=== PATIENT | male | born 1935 | race Caucasian/White ===

== ENCOUNTER 2023-09-15 15:26 | Emergency (ER) | payer MEDICARE ==
[2023-09-15 16:05] VITALS: RESP 18
--- NOTE | 2023-09-15 16:42 | ED ---
ENT HPI - General Chief complaint: ENT Stated complaint: Nose bleed Time Seen by Provider: 09/15/23 16:06 Source: patient, RN notes reviewed Mode of arrival: ambulatory Limitations: no limitations - History of Present Illness Initial comments: Patient is an 88-year-old male presenting to the ER with a chief complaint of epistaxis. Patient states he has been having nosebleeds since Monday of this week. He states it starts in the morning as soon as he stands up and is pretty continuous throughout the day. Patient is taking warfarin 2.5mg every other day and 5 mg every other day for atrial fibrillation. He states his INR has not been checked since May 2023. Patient does report that he is only bleeding from his left nostril. Denies any injuries or traumas to his nose. Patient does report blood is dripping down the back of his throat. Denies any difficulties breathing. Denies any chest pain, shortness of breath, dizziness, lightheadedness, hematuria, melena, bright red blood per rectum. - Related Data Allergies Allergy/AdvReac Type Severity Reaction Status Date / Time metformin AdvReac Diarrhea Verified 09/15/23 15:54 Review of Systems ROS Statement: Those systems with pertinent positive or pertinent negative responses have been documented in the HPI. ROS Other: All systems not noted in ROS Statement are negative. Past Medical History Past Medical History: Diabetes Mellitus, Hyperlipidemia, Hypertension History of Any Multi-Drug Resistant Organisms: None Reported Past Surgical History: Coronary Bypass/CABG Additional Past Surgical History / Comment(s): valve replacement Past Psychological History: No Psychological Hx Reported Smoking Status: Former smoker Past Alcohol Use History: None Reported Past Drug Use History: None Reported General Exam Limitations: no limitations General appearance: alert, in no apparent distress Head exam: Present: atraumatic, normocephalic, normal inspection Eye exam: Present: normal appearance, PERRL, EOMI. Absent: scleral icterus, conjunctival injection, periorbital swelling ENT exam: Present: normal exam, mucous membranes moist, other (Blood in posterior pharynx. Mild active nosebleed from left nostril.) Respiratory exam: Present: normal lung sounds bilaterally. Absent: respiratory distress, wheezes, rales, rhonchi, stridor Cardiovascular Exam: Present: normal rhythm, irregular rhythm, normal heart sounds. Absent: systolic murmur, diastolic murmur, rubs, gallop, clicks Neurological exam: Present: alert, oriented X3, CN II-XII intact Psychiatric exam: Present: normal affect, normal mood Course Vital Signs 09/15/23 09/15/23 15:50 18:55 Temperature 98.2 F 98 F Pulse Rate 76 52 L Respiratory 18 18 Rate Blood Pressure 144/85 155/70 O2 Sat by Pulse 98 100 Oximetry - Reevaluation(s) Reevaluation #1: 09/15/23 17:25 Patient reevaluated nose still mildly bleeding. No signs of acute distress. Reevaluation #2: 09/15/23 18:11 Patient reevaluated. Slow bleeding from left nostril. Afrin administered pressure reapplied. No signs of acute distress. Reevaluation #3: 09/15/23 19:16 Patient reevaluated. Active bleeding from left nostril. TXA packing administered. No signs of acute distress. Reevaluation #4: 09/15/23 19:24 Patient reevaluated. TXA packing removed. No active bleeding. Patient without signs of acute distress. Medical Decision Making - Medical Decision Making Was pt. sent in by a medical professional or institution (, PA, SAMPLE WASHER, urgent care, hospital, or retirement...) When possible be specific @ -No Did you speak to anyone other than the patient for history (EMS, parent, family, police, friend...)? What history was obtained from this source @ -No Did you review nursing and triage notes (agree or disagree)? Why? @ -I reviewed and agree with nursing and triage notes Were old charts reviewed (outside hosp., previous admission, EMS record, old EKG, old radiological studies, urgent care reports/EKG's, retirement records)? Report findings @ -No old charts were reviewed Differential Diagnosis (chest pain, altered mental status, abdominal pain women, abdominal pain men, vaginal bleeding, weakness, fever, dyspnea, syncope, headache, dizziness, GI bleed, back pain, seizure, CVA, palpatations, mental health, musculoskeletal)? @ -Not applicable EKG interpreted by me (3pts min.). @ -As above X-rays interpreted by me (1pt min.). @ -None done CT interpreted by me (1pt min.). @ -None done U/S interpreted by me (1pt. min.). @ -None done What testing was considered but not performed or refused? (CT, X-rays, U/S, labs)? Why? @ -None What meds were considered but not given or refused? Why? @ -None Did you discuss the management of the patient with other professionals (professionals i.e. , PA, SAMPLE WASHER, lab, RT, psych nurse, group social worker, quality improvement specialist, teacher, mortgage loan officer, pillowcase cutter)? Give summary @ -No Was smoking cessation discussed for >3mins.? @ -No Was critical care preformed (if so, how long)? @ -No Were there social determinants of health that impacted care today? How? (Homelessness, low income, unemployed, alcoholism, drug addiction, transportation, low edu. Level, literacy, decrease access to med. care, senior living, rehab)? @ -Decrease access to medical care Was there de-escalation of care discussed even if they declined (Discuss DNR or withdrawal of care, Hospice)? DNR status @ -No What co-morbidities impacted this encounter? (DM, HTN, Smoking, COPD, CAD, Cancer, CVA, ARF, Chemo, Hep., AIDS, mental health diagnosis, sleep apnea, morbid obesity)? @ -Hypertension, obesity, atrial fibrillation, history of CVA Was patient admitted / discharged? Hospital course, mention meds given and route, prescriptions, significant lab abnormalities, going to OR and other pertinent info. @ -Discharge. Patient is an 88-year-old male presented to ER with a chief complaint of epistaxis. Vital stable. History and physical exam were completed. Patient in no signs of acute distress. Mild active bleeding noted from left nostril. There is also mild blood in posterior pharynx. Patient was instructed to clear nose with clots and to apply pressure for 20 minutes. Upon reevaluation, bleeding is still active. Afrin was then administered and pressure reapplied. Upon reevaluation bleeding continued. TXA was administered on gauze. Upon reevaluation bleeding ceased. Patient blood pressure was also closely monitored while in the ER. Patient did receive clonidine for blood pressure control as it may be contributing to bleed. Labs were obtained due to warfarin use. INR 4.8, PT 46.8, APTT 33.4. Hemoglobin stable at 13. Patient advised to not take warfarin until able to follow-up with PCP in the next 1 to 2 days. Return parameters were discussed. Patient be discharged stable condition with follow-up to PCP. Patient expressed understanding and agreement with care plan. Undiagnosed new problem with uncertain prognosis? @ -No Drug Therapy requiring intensive monitoring for toxicity (Heparin, Nitro, Insulin, Cardizem)? @ -No Were any procedures done? @ -No Diagnosis/symptom? @ -Epistaxis Acute, or Chronic, or Acute on Chronic? @ -Acute Uncomplicated (without systemic symptoms) or Complicated (systemic symptoms)? @ -Uncomplicated Side effects of treatment? @ -No Exacerbation, Progression, or Severe Exacerbation? @ -No Poses a threat to life or bodily function? How? (Chest pain, [place], [place], pneumonia, PE, COPD, DKA, ARF, appy, cholecystitis, CVA, Diverticulitis, Homicidal, Suicidal, threat to staff... and all critical care pts) @ -No - Lab Data Result diagrams: 09/15/23 16:45 09/15/23 16:45 Lab Results 09/15/23 09/15/23 09/15/23 Range/Units 16:45 16:45 16:45 WBC 8.0 (3.8-10.6) k/uL RBC 4.48 (4.30-5.90) m/uL Hgb 13.9 (13.0-17.5) gm/dL Hct 42.0 (39.0-53.0) % MCV 93.9 (80.0-100.0) fL MCH 31.0 (25.0-35.0) pg MCHC 33.0 (31.0-37.0) g/dL RDW 15.1 (11.5-15.5) % Plt Count 145 L (150-450) k/uL MPV 9.2 Hypochromasia Slight PT 46.8 H (10.0-12.5) sec INR 4.8 H (<1.2) APTT 33.4 H (22.0-30.0) sec Sodium 139 (137-145) mmol/L Potassium 4.9 (3.5-5.1) mmol/L Chloride 109 H (98-107) mmol/L Carbon Dioxide 27 (22-30) mmol/L Anion Gap 3 mmol/L BUN 18 (9-20) mg/dL Creatinine 0.93 (0.66-1.25) mg/dL Est GFR (CKD-EPI)AfAm 85 (>60 ml/min/1.73 sqM) Est GFR (CKD-EPI)NonAf 74 (>60 ml/min/1.73 sqM) Glucose 142 H (74-99) mg/dL Calcium 8.7 (8.4-10.2) mg/dL Total Bilirubin 1.4 H (0.2-1.3) mg/dL AST 24 (17-59) U/L ALT 11 (4-49) U/L Alkaline Phosphatase 114 (38-126) U/L Total Protein 6.6 (6.3-8.2) g/dL Albumin 3.3 L (3.5-5.0) g/dL Disposition Clinical Impression: Epistaxis Disposition: HOME SELF-CARE Condition: Stable Instructions (If sedation given, give patient instructions): Warfarin (By mouth), Nosebleed (ED) Additional Instructions: Please hold warfarin. Follow-up with PCP in the next 1 to 2 days. Return to ER for any new or worsening symptoms. Is patient prescribed a controlled substance at d/c from ED?: No Referrals: Nonstaff,Physician [Primary Care Provider] - 1-2 days Time of Disposition: 19:53
[2023-09-15 17:01] LABS: HGB 13.9 gm/dL (13.0-17.5); Hypochromasia Slight; MCV 93.9 fL (80.0-100.0); Mean Platelet Volume 9.2; Platelet Count 145 k/uL (150-450); RBC 4.48 m/uL (4.30-5.90); RDW 15.1 % (11.5-15.5)
[2023-09-15 17:05] LABS: INR 4.8 (<1.2)
[2023-09-15 17:06] LABS: ALT 11 U/L (4-49); African American GFR (CKD) 85 (>60 ml/min/1.73 sqM); Albumin 3.3 g/dL (3.5-5.0); Anion Gap 3 mmol/L; Blood Urea Nitrogen 18 mg/dL (9-20); Calcium 8.7 mg/dL (8.4-10.2); Carbon Dioxide 27 mmol/L (22-30); Chloride 109 mmol/L (98-107); Glucose 142 mg/dL (74-99); Non-African American GFR(CKD) 74 (>60 ml/min/1.73 sqM); Partial Thromboplastin Time 33.4 sec (22.0-30.0); Prothrombin Time 46.8 sec (10.0-12.5); Sodium 139 mmol/L (137-145); Total Bilirubin 1.4 mg/dL (0.2-1.3); Total Protein 6.6 g/dL (6.3-8.2)
[2023-09-15 17:09] LABS: AST 24 U/L (17-59); Alkaline Phosphatase 114 U/L (38-126); Potassium 4.9 mmol/L (3.5-5.1)
[2023-09-15] MEDS ORDERED: OXYMETAZOLINE 0.05% NASL SPRAY 1 SPRAY BOTTLE NASAL STA (17:49)
[2023-09-15] MEDS ORDERED: TRANEXAMIC ACID 1,000 MG/10 ML VIAL IRRIGATION ONE (18:10)
[2023-09-15] MEDS ORDERED: cloNIDine HCL 0.1 MG TAB PO STA (18:59)
[2023-09-15 19:10] VITALS: TEMP 98
[2023-09-15 20:54] VITALS: BP 161/88; PULSE 66
== END 2023-09-15 20:29 | disposition home or self-care (01) ==
LOC: EC 15:26
DX: R04.0 Epistaxis (principal); E11.9 Type 2 diabetes mellitus without complications; I10 Essential (primary) hypertension; Z87.891 Personal history of nicotine dependence; Z88.8 Allergy status to other drugs, medicaments and biological substances
CPT/HCPCS: 36415; 80053; 85027; 85610; 85730; 99283

== ENCOUNTER 2024-02-07 10:10 | Inpatient (IN) | payer MEDICARE ==
--- NOTE | 2024-02-07 10:40 | ED ---
General Adult HPI - General Chief complaint: Chest Pain Stated complaint: Chest pain Time Seen by Provider: 02/07/24 10:12 Source: EMS Mode of arrival: EMS Limitations: no limitations - History of Present Illness Initial comments: Dictation was produced using [employer] dictation software. please excuse any grammatical, word or spelling errors. Chief Complaint: 88-year-old male hard of hearing presents to the ER for epigastric pain History of Present Illness: Patient is 88-year-old male he is brought in from home by EMS. Patient complaining of hours of epigastric abdominal pain. Patient's history of CABG. Patient hard of hearing. 12 years ago patient had CABG after having had atypical chest pain. He did not have any obvious pressure according to EMS received report from family. Patient states that he has pain in his abdomen nonradiating. May be some nausea but no diaphoresis. Denies any pressure in his substernal area. Patient also has history of valvular replacement. The ROS documented in this emergency department record has been reviewed and confirmed by me. Those systems with pertinent positive or negative responses have been documented in the HPI. All other systems are other negative and/or noncontributory. - Related Data Home Medications Medication Instructions Recorded Confirmed Aspirin EC [Ecotrin Low Dose] 81 mg PO DAILY 02/07/24 02/07/24 Atorvastatin [Lipitor] 40 mg PO HS 02/07/24 02/07/24 Doxycycline Hyclate 50 mg PO DAILY 02/07/24 02/07/24 Finasteride [Proscar] 5 mg PO DAILY 02/07/24 02/07/24 Gabapentin [Neurontin] 300 mg PO DAILY 02/07/24 02/07/24 Gabapentin [Neurontin] 600 mg PO HS 02/07/24 02/07/24 Losartan Potassium 100 mg PO DAILY 02/07/24 02/07/24 Metoprolol Tartrate [Lopressor] 25 mg PO BID 02/07/24 02/07/24 Nortriptyline [Pamelor] 25 mg PO HS 02/07/24 02/07/24 Tamsulosin [Flomax] 0.4 mg PO PC-SUPPER 02/07/24 02/07/24 metroNIDAZOLE 0.75% CREAM 1 applic TOPICAL BID 02/07/24 02/07/24 [Metrocream 0.75%] metroNIDAZOLE [metroNIDAZOLE 0.75%] 1 applic TOPICAL BID 02/07/24 02/07/24 Allergies Allergy/AdvReac Type Severity Reaction Status Date / Time metformin AdvReac Diarrhea Verified 02/07/24 12:12 Review of Systems ROS Statement: Those systems with pertinent positive or pertinent negative responses have been documented in the HPI. ROS Other: All systems not noted in ROS Statement are negative. Past Medical History Past Medical History: Diabetes Mellitus, Hyperlipidemia, Hypertension Additional Past Medical History / Comment(s): Quadruple bypass History of Any Multi-Drug Resistant Organisms: None Reported Past Surgical History: Coronary Bypass/CABG Additional Past Surgical History / Comment(s): valve replacement Past Psychological History: No Psychological Hx Reported Smoking Status: Former smoker Past Alcohol Use History: None Reported Past Drug Use History: None Reported General Exam - General Exam Comments Initial Comments: PHYSICAL EXAM: General Impression: Alert and oriented x3, not in acute distress HEENT: Normocephalic atraumatic, extra-ocular movements intact, pupils equal and reactive to light bilaterally, mucous membranes moist. Cardiovascular: Heart regular rate and rhythm Chest: Able to complete full sentences, no retractions, no tachypnea Abdomen: abdomen soft, non-tender, non-distended, no organomegaly Musculoskeletal: Pulses present and equal in all extremities, no peripheral edema Motor: no focal deficits noted Neurological: CN II-XII grossly intact, no focal motor or sensory deficits noted Skin: Intact with no visualized rashes Psych: Normal affect and mood Limitations: no limitations Course Vital Signs 02/07/24 02/07/24 02/07/24 10:12 11:05 12:16 Temperature 97.8 F 99.9 F H Pulse Rate 79 69 120 H Respiratory 20 18 24 Rate Blood Pressure 132/65 156/89 184/95 O2 Sat by Pulse 98 97 93 L Oximetry EKG Findings - EKG Comments: EKG Findings:: My EKG interpretation: Ventricular rate 72, sinus rhythm,. 171, qrs 151, QTc 431, right bundle branch block. No PA prolongation, no QTC prolongation, no ST or T-wave changes noted. No old EKG for comparison overall, this EKG is not Medical Decision Making - Medical Decision Making Was pt. sent in by a medical professional or institution (, PA, FINGERPRINT EXPERT, urgent care, hospital, or alf...) When possible be specific @ -No Did you speak to anyone other than the patient for history (EMS, parent, family, police, friend...)? What history was obtained from this source @ -Some history obtained from as described above also states that patient is DNR. Did you review nursing and triage notes (agree or disagree)? Why? @ -I reviewed and agree with nursing and triage notes Were old charts reviewed (outside hosp., previous admission, EMS record, old EKG, old radiological studies, urgent care reports/EKG's, alf records)? Report findings @ -No old charts were reviewed Differential Diagnosis (chest pain, altered mental status, abdominal pain women, abdominal pain men, vaginal bleeding, musculoskeletal, weakness, fever, dyspnea, syncope, headache, dizziness, GI bleed, back pain, seizure, CVA, palpatations, mental health)? @ -Differential Chest Pain: Stable Angina, Unstable Angina, STEMI, NSTEMI Aortic Dissection, Pneumothorax, Musculoskeletal, Esophageal Spasm GERD, Cholecystitis, Pancreatitis, Zoster, this is not meant to be an all-inclusive list. EKG interpreted by me (3pts min.). @ -See above. X-rays interpreted by me (1pt min.). @ -Chest x-ray shows right lower lobe effusion along with some opacities concerning for pneumonia CT interpreted by me (1pt min.). @ -None done U/S interpreted by me (1pt. min.). @ -None done What testing was considered but not performed or refused? (CT, X-rays, U/S, labs)? Why? @ -None What meds were considered but not given or refused? Why? @ -None Was smoking cessation discussed for >3mins.? @ -No Were there social determinants of health that impacted care today? How? (Homelessness, low income, unemployed, alcoholism, drug addiction, transportation, low edu. Level, literacy, decrease access to med. care, detention, rehab)? @ -No Was there de-escalation of care discussed even if they declined (Discuss DNR or withdrawal of care, Hospice)? DNR status @ -No What co-morbidities impacted this encounter? (DM, HTN, Smoking, COPD, CAD, Cancer, CVA, ARF, Chemo, Hep., AIDS, mental health diagnosis, sleep apnea, morb id obesity)? @ -Coronary artery disease, history of CABG Was patient admitted / discharged? Hospital course, mention meds given and route, prescriptions, significant lab abnormalities, going to OR and other pertinent info. @ -88-year-old male presents emergency department for epigastric pain. Patient is a poor historian. He is well-appearing upon initial evaluation. Vital signs upon arrival are within acceptable limits. While being monitored in the emergency department patient started to have some shaking chills and low-grade temperature along with elevated heart rate. EKG was performed showing A-fib RVR. Patient started on Cardizem. Patient has a history of A-fib according to . States that patient is DNR. Chest x-ray suspicious for pneumonia. Laboratory evaluation obtained showed no leukocytosis. Elevated liver enzymes, troponin 0.024. Time of diagnosis of pneumonia was approximate 12:30 PM. We will avoid 30 cc/kg bolus of fluids due to patient's history of cardiac disease and likely heart failure. Patient is given 1 L of IV fluids. Did you discuss the management of the patient with other professionals (professionals i.e. , PA, FINGERPRINT EXPERT, lab, RT, psych nurse, social sciences professor, nurse case management, teacher, air support control officer, case resolution specialist)? Give summary @ -Case discussed with Dr. Rosado for admission Was critical care preformed (if so, how long)? @ -Yes, 33 minutes Undiagnosed new problem with uncertain prognosis? @ -No Drug Therapy requiring intensive monitoring for toxicity (Heparin, Nitro, Insulin, Cardizem)? @ -No Were any procedures done? @ -No Diagnosis/symptom? Acute, or Chronic, or Acute on Chronic? Uncomplicated (without systemic symptoms) or Complicated (systemic symptoms)? @ -Chest pain, A-fib with RVR, pneumonia Side effects of treatment? @ -No Exacerbation, Progression, or Severe Exacerbation? @ -No Poses a threat to life or bodily function? How? (Chest pain, [place], [place], pneumonia, PE, COPD, DKA, ARF, appy, cholecystitis, CVA, Diverticulitis, Homicidal, Suicidal, threat to staff... and all critical care pts) @ -yes - Lab Data Result diagrams: 02/07/24 10:29 02/07/24 10:29 Lab Results 02/07/24 02/07/24 02/07/24 Range/Units 10:29 10:29 10:29 WBC 9.9 (3.8-10.6) k/uL RBC 4.23 L (4.30-5.90) m/uL Hgb 13.0 (13.0-17.5) gm/dL Hct 41.4 (39.0-53.0) % MCV 98.0 (80.0-100.0) fL MCH 30.7 (25.0-35.0) pg MCHC 31.4 (31.0-37.0) g/dL RDW 15.1 (11.5-15.5) % Plt Count 132 L (150-450) k/uL MPV 9.9 Neutrophils % 83 % Lymphocytes % 12 % Monocytes % 4 % Eosinophils % 1 % Basophils % 0 % Neutrophils # 8.2 H (1.3-7.7) k/uL Lymphocytes # 1.1 (1.0-4.8) k/uL Monocytes # 0.4 (0-1.0) k/uL Eosinophils # 0.1 (0-0.7) k/uL Basophils # 0.0 (0-0.2) k/uL Hypochromasia Slight PT 11.5 (10.0-12.5) sec INR 1.1 (<1.2) APTT 23.7 (22.0-30.0) sec Sodium 140 (137-145) mmol/L Potassium 5.0 (3.5-5.1) mmol/L Chloride 108 H (98-107) mmol/L Carbon Dioxide 27 (22-30) mmol/L Anion Gap 5 mmol/L BUN 17 (9-20) mg/dL Creatinine 1.09 (0.66-1.25) mg/dL Est GFR (CKD-EPI)AfAm 70 (>60 ml/min/1.73 sqM) Est GFR (CKD-EPI)NonAf 61 (>60 ml/min/1.73 sqM) Glucose 123 H (74-99) mg/dL Calcium 8.9 (8.4-10.2) mg/dL Magnesium 1.4 L (1.6-2.3) mg/dL Total Bilirubin 2.4 H (0.2-1.3) mg/dL AST 392 H (17-59) U/L ALT 136 H (4-49) U/L Alkaline Phosphatase 169 H (38-126) U/L Creatine Kinase 45 L (55-170) U/L Troponin I (0.000-0.034) ng/mL Total Protein 6.3 (6.3-8.2) g/dL Albumin 3.3 L (3.5-5.0) g/dL 02/07/24 Range/Units 10:29 WBC (3.8-10.6) k/uL RBC (4.30-5.90) m/uL Hgb (13.0-17.5) gm/dL Hct (39.0-53.0) % MCV (80.0-100.0) fL MCH (25.0-35.0) pg MCHC (31.0-37.0) g/dL RDW (11.5-15.5) % Plt Count (150-450) k/uL MPV Neutrophils % % Lymphocytes % % Monocytes % % Eosinophils % % Basophils % % Neutrophils # (1.3-7.7) k/uL Lymphocytes # (1.0-4.8) k/uL Monocytes # (0-1.0) k/uL Eosinophils # (0-0.7) k/uL Basophils # (0-0.2) k/uL Hypochromasia PT (10.0-12.5) sec INR (<1.2) APTT (22.0-30.0) sec Sodium (137-145) mmol/L Potassium (3.5-5.1) mmol/L Chloride (98-107) mmol/L Carbon Dioxide (22-30) mmol/L Anion Gap mmol/L BUN (9-20) mg/dL Creatinine (0.66-1.25) mg/dL Est GFR (CKD-EPI)AfAm (>60 ml/min/1.73 sqM) Est GFR (CKD-EPI)NonAf (>60 ml/min/1.73 sqM) Glucose (74-99) mg/dL Calcium (8.4-10.2) mg/dL Magnesium (1.6-2.3) mg/dL Total Bilirubin (0.2-1.3) mg/dL AST (17-59) U/L ALT (4-49) U/L Alkaline Phosphatase (38-126) U/L Creatine Kinase (55-170) U/L Troponin I 0.024 (0.000-0.034) ng/mL Total Protein (6.3-8.2) g/dL Albumin (3.5-5.0) g/dL Disposition Clinical Impression: Pneumonia, Atrial fibrillation with RVR Disposition: ADMITTED IP TO THIS HOSP Condition: Serious Referrals: Sohail Klein DO [Primary Care Provider] - 1-2 days Decision Time: 13:03
[2024-02-07 10:42] LABS: Basophils % (A) 0 %; Eosinophils # (A) 0.1 k/uL (0-0.7); Eosinophils % (A) 1 %; HCT 41.4 % (39.0-53.0); Hypochromasia Slight; Lymphocytes # (A) 1.1 k/uL (1.0-4.8); Lymphocytes % (A) 12 %; MCH 30.7 pg (25.0-35.0); MCHC 31.4 g/dL (31.0-37.0); Mean Platelet Volume 9.9; Monocytes # (A) 0.4 k/uL (0-1.0); Monocytes % (A) 4 %; Neutrophils # (A) 8.2 k/uL (1.3-7.7); Neutrophils % (A) 83 %; Platelet Count 132 k/uL (150-450); RBC 4.23 m/uL (4.30-5.90); RDW 15.1 % (11.5-15.5); WBC 9.9 k/uL (3.8-10.6)
[2024-02-07 10:48] LABS: ALT 136 U/L (4-49); African American GFR (CKD) 70 (>60 ml/min/1.73 sqM); Albumin 3.3 g/dL (3.5-5.0); Anion Gap 5 mmol/L; Blood Urea Nitrogen 17 mg/dL (9-20); Calcium 8.9 mg/dL (8.4-10.2); Carbon Dioxide 27 mmol/L (22-30); Chloride 108 mmol/L (98-107); Creatine Kinase 45 U/L (55-170); Glucose 123 mg/dL (74-99); Non-African American GFR(CKD) 61 (>60 ml/min/1.73 sqM); Sodium 140 mmol/L (137-145); Total Bilirubin 2.4 mg/dL (0.2-1.3)
[2024-02-07 11:01] LABS: INR 1.1 (<1.2); Partial Thromboplastin Time 23.7 sec (22.0-30.0); Prothrombin Time 11.5 sec (10.0-12.5)
[2024-02-07 11:03] LABS: AST 392 U/L (17-59); Alkaline Phosphatase 169 U/L (38-126); Magnesium 1.4 mg/dL (1.6-2.3); Total Protein 6.3 g/dL (6.3-8.2)
--- NOTE | 2024-02-07 11:38 | XR ---
EXAMINATION TYPE: XR chest 2V DATE OF EXAM: 02/07/2024 10:41 AM CLINICAL INDICATION:Male, 88 years old with history of Chest Pain; [facility] COMPARISON: None TECHNIQUE: XR chest 2V Frontal and lateral views of the chest. FINDINGS: Lungs/Pleura: There is no evidence of pleural effusion, focal consolidation, or pneumothorax. Pulmonary vascularity: Pulmonary vascular congestion. Heart/mediastinum: Cardiomediastinal silhouette is enlarged and stable. Musculoskeletal: No acute osseous pathology. There is fixation hardware in the lower cervical spine. IMPRESSION: Large right pleural effusion with associated atelectasis and right-sided predominant pulmonary vascul ar congestion. Airspace opacities projecting over the heart and lateral view correlate for pneumonia, correlate with cross-sectional imaging to rule out underlying mass.
[2024-02-07] MEDS: SODIUM CHLORIDE 0.9% 1,000 ML IV STA (12:55)
[2024-02-07] MEDS: DILTIAZEM DRIP BOLUS FROM BAG 1 MG SOLN IV ONE (12:58)
[2024-02-07] MEDS: DILTIAZEM 125 MG in SODIUM CHLORIDE 0.9% 100 ML IV SCH (12:58)
[2024-02-07] MEDS: ACETAMINOPHEN TAB 500 MG TAB PO STA (13:01)
[2024-02-07] MEDS: ASPIRIN 81 MG PO STA (13:01)
[2024-02-07] MEDS ORDERED: NALOXONE 0.4 MG/ML 1 ML VIAL IV PRN (13:04)
[2024-02-07] MEDS: cefTRIAXone IN SWFI 1,000 MG/10 ML SYRINGE IVP ONE (13:22)
[2024-02-07] MEDS: AZITHROMYCIN 500 MG in SODIUM CHLORIDE 0.9% 250 ML IVPB ONE (13:26)
[2024-02-07] MEDS: SODIUM CHLORIDE 0.9% 1,000 ML IV SCH (14:14)
[2024-02-07] MEDS: ENOXAPARIN 40 MG/0.4 ML SYRINGE SQ SCH (17:47)
[2024-02-07] MEDS: TAMSULOSIN 0.4 MG CAP.ER.24H PO SCH (17:47)
[2024-02-07] MEDS ORDERED: ATORVASTATIN 40 MG TAB PO SCH (21:00)
[2024-02-07] MEDS: METOPROLOL TARTRATE 25 MG TAB PO SCH (21:03)
[2024-02-07] MEDS: NORTRIPTYLINE 25 MG CAP PO SCH (21:03)
[2024-02-07] MEDS: GABAPENTIN 300 MG CAP PO SCH (21:03)
--- NOTE | 2024-02-07 21:30 | P.HPIM ---
History of Present Illness H&P Date: 02/07/24 Chief Complaint: Epigastric/chest pain This is a 88-year-old patient who follows with Dr. Klein. Chronic stable medical conditions include diabetes, hypertension, hyperlipidemia, coronary bypass, very hard of hearing. Patient does live by himself. Does use a walker. Lives at [facility]. Patient is accompanied by his son and grandson in the ER. Apparently patient had called his daughter this morning and had complained of chest pain. Later complaining of pain in the upper abdomen/epigastric area. Patient also had a cough. Also apparently had a fever. Because of patient's very hard of hearing patient not a very good historian. Review of systems: GEN.: [Tired EYES: None HEENT: Very hard of hearing NECK: None RESPIRATORY: None CARDIOVASCULAR: As above GASTROINTESTINAL: No change in bowel pattern. No nausea vomiting GENITOURINARY: None MUSCULOSKELETAL: Joint pains LYMPHATICS: None HEMATOLOGICAL: None PSYCHIATRY: None NEUROLOGICAL: Does use a walker Social history: Smoked in the past. 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 Lives at [facility]. Does use a walker. Physical examination: VITAL SIGNS: 103.1, 120, 24, 172 x 83, 94% room air GENERAL: BMI 35.6,. Laying in bed awake tired EYES: Pupils equal. Conjunctiva sreekanth l. HEENT: External appearance of nose and ears normal, oral cavity grossly normal. Very hard of hearing NECK: JVD not raised; masses not palpable. HEART: First and second heart sounds are normal; some edema. LUNGS: Respiratory rate increased; decreased breath sound. ABDOMEN: Soft, nontender, liver spleen not palpable, no masses palpable. PSYCH: Able to answer simple questions l. MUSCULOSKELETAL:No Clubbing/cyanosis;muscles-grossly intact. OA NEUROLOGICAL: Cranial nerves grossly intact; no facial asymmetry, power and sensation grossly intact. LYMPHATICS: No lymph nodes palpable in the axilla and neck INVESTIGATIONS, reviewed in the clinical context: February 06: White count 9.9 hemoglobin 13 platelets 132 sodium 140 potassium 5 BUN 17 creatinine 1.09 AST 392 ALT 136 Troponin I less than 0.024 Influenza type A, type B, RSV, COVID-19: Not detected EKG tracing personally reviewed by me-atrial fibrillation rate 140 Chest x-ray film personally reviewed by [id number] pleural effusion/atele ctasis infiltrates Assessment plan: -Pneumonia suspect gram-negative organism causing sepsis IV ceftriaxone. Zithromax. 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 -DNR -Medical POA: Daughter dennise and son Shankar Past Medical History Past Medical History: Diabetes Mellitus, Hyperlipidemia, Hypertension Additional Past Medical History / Comment(s): Quadruple bypass History of Any Multi-Drug Resistant Organisms: None Reported Past Surgical History: Coronary Bypass/CABG Additional Past Surgical History / Comment(s): valve replacement Past Psychological History: No Psychological Hx Reported Smoking Status: Former smoker Past Alcohol Use History: None Reported Past Drug Use History: None Reported Medications and Allergies Home Medications Medication Instructions Recorded Confirmed Type Aspirin EC [Ecotrin Low Dose] 81 mg PO DAILY 02/07/24 02/07/24 History Atorvastatin [Lipitor] 40 mg PO HS 02/07/24 02/07/24 History Doxycycline Hyclate 50 mg PO DAILY 02/07/24 02/07/24 History Finasteride [Proscar] 5 mg PO DAILY 02/07/24 02/07/24 History Gabapentin [Neurontin] 300 mg PO DAILY 02/07/24 02/07/24 History Gabapentin [Neurontin] 600 mg PO HS 02/07/24 02/07/24 History Losartan Potassium 100 mg PO DAILY 02/07/24 02/07/24 History Metoprolol Tartrate [Lopressor] 25 mg PO BID 02/07/24 02/07/24 History Nortriptyline [Pamelor] 25 mg PO HS 02/07/24 02/07/24 History Tamsulosin [Flomax] 0.4 mg PO PC-SUPPER 02/07/24 02/07/24 History metroNIDAZOLE 0.75% CREAM 1 applic TOPICAL BID 02/07/24 02/07/24 History [Metrocream 0.75%] metroNIDAZOLE [metroNIDAZOLE 0.75%] 1 applic TOPICAL BID 02/07/24 02/07/24 History Allergies Allergy/AdvReac Type Severity Reaction Status Date / Time metformin AdvReac Diarrhea Verified 02/07/24 12:12 Physical Exam Vitals: Vital Signs Temp Pulse Pulse Resp BP BP Pulse Ox 02/07/24 16:44 80 17 112/56 93 L 02/07/24 16:09 99.0 F 108 H 22 110/58 94 L 02/07/24 14:00 106 H 22 158/80 94 L 02/07/24 13:50 100.4 F H 02/07/24 13:03 103.1 F H 111 H 18 172/83 94 L 02/07/24 12:16 99.9 F H 120 H 24 184/95 93 L 02/07/24 11:05 69 18 156/89 97 02/07/24 10:12 97.8 F 79 20 132/65 98 Intake and Output 02/07/24 02/07/24 02/07/24 06:59 14:59 22:59 Other: Weight 106.141 kg 106.141 kg Results CBC & Chem 7: 02/07/24 10:29 02/07/24 10:29 Labs: Abnormal Lab Results - Last 24 Hours (Table) 02/07/24 02/07/24 Range/Units 10:29 10:29 RBC 4.23 L (4.30-5.90) m/uL Plt Count 132 L (150-450) k/uL Neutrophils # 8.2 H (1.3-7.7) k/uL Chloride 108 H (98-107) mmol/L Glucose 123 H (74-99) mg/dL Magnesium 1.4 L (1.6-2.3) mg/dL Total Bilirubin 2.4 H (0.2-1.3) mg/dL AST 392 H (17-59) U/L ALT 136 H (4-49) U/L Alkaline Phosphatase 169 H (38-126) U/L Creatine Kinase 45 L (55-170) U/L Albumin 3.3 L (3.5-5.0) g/dL Thrombosis Risk Factor Assmnt - Choose All That Apply Any of the Below Risk Factors Present?: Yes Each Factor Represents 1 point: Obesity (BMI >25) Other Risk Factors: Yes Each Risk Factor Represents 3 Points: Age 75 years or older Other congenital or acquired thrombophilia - If yes, enter type in comment: No Thrombosis Risk Factor Assessment Total Risk Factor Score: 4 Thrombosis Risk Factor Assessment Level: Moderate Risk
--- NOTE | 2024-02-07 22:05 | US ---
EXAMINATION TYPE: US abdomen limited DATE OF EXAM: 02/07/2024 COMPARISON: NONE CLINICAL INDICATION: Male, 88 years old with history of Elevated liver enzymes; Elevated LFTS TECHNIQUE: Multiple sonographic images of the right upper quadrant are obtained. FINDINGS: EXAM MEASUREMENTS: Liver Length: 13.6 cm Gallbladder Wall: 0.3 cm CBD: Unable to be visualized Right Kidney: 11.5 x 5.5 x 6.5 cm TRIPE WASHER NOTES:Limited due to lack of patient mobility, patient body habitus, and overlying irving l gas Pancreas: Obscured by bowel gas Liver: wnl as best visualized, however portions are obscured by bowel gas Gallbladder: wnl as best seen Evidence for sonographic Haile's sign: No CBD: Unable to be visualized Right Kidney: There is a 7.3 x 6.7 x 5.5cm anechoic appearing lesion seen on the superior pole. IMPRESSION: 1. Limited exam due to the patient's body habitus and overlying bowel gas 2. Liver echotexture consistent with fatty infiltration but no hepatomegaly
[2024-02-08 05:47] LABS: Glucose,Whole Blood 153 mg/dL (70-110)
[2024-02-08] MEDS: FINASTERIDE 5 MG TAB PO SCH (08:16)
[2024-02-08] MEDS: GABAPENTIN 300 MG CAP PO SCH (08:16)
[2024-02-08] MEDS: ASPIRIN 81 MG PO SCH (08:16)
[2024-02-08] MEDS: LOSARTAN 50 MG TAB PO SCH (08:16)
[2024-02-08 11:13] LABS: Glucose,Whole Blood 128 mg/dL (70-110)
--- NOTE | 2024-02-08 11:17 | P.CRDCN ---
History of Present Illness History of present illness: HISTORY OF PRESENTING ILLNESS This is a pleasant 88-year-old with past medical history significant for hypertension, hyperlipidemia, coronary artery disease status post CABG as well as valve replacement 2007, obesity, persistent atrial fibrillation with patient being brought off of anticoagulation a few years ago, possible TIA. He does not see a co op however [place]. He was having issues with rare falls and some bruising as well as nosebleed and had tried novel oral anticoagulation however too expensive and switched to Coumadin and eventually this was discontinued. He states approximately 3 weeks ago he had concern of possible TIA however stayed at home. Since then he has been feeling okay however over the last one day he started to develop chest pain radiating across his lower chest and upper abdomen and could not sit down and get comfortable. He has had some diarrhea. He was found to have fever of 103, increased liver enzymes as well as bilirubin. Abdominal ultrasound did not show any significant gallstones however technically difficult. He states he feels better today. Usually does not get much chest pain. Troponin 1 was normal. EKG he'll initially showing A. fib with controlled rate however increased up to 140 with A. fib with right bundle branch block and nonspecific ST depressions. REVIEW OF SYSTEMS At the time of my exam: CONSTITUTIONAL: Denies fever or chills. CARDIOVASCULAR: +chest pain, +chronic shortness of breath, no orthopnea, PND or palpitations. RESPIRATORY: Denies cough. GASTROINTESTINAL: Denies abdominal pain, diarrhea, constipation, nausea or vomiting. MUSCULOSKELETAL: Denies myalgias. NEUROLOGIC: Denies numbness, tingling or weakness. ENDOCRINE: Denies fatigue, weight change, polydipsia or polyurina. GENITOURINARY: Denies burning, hematuria or urgency with micturation. HEMATOLOGIC: Denies history of anemia or bleeding. PHYSICAL EXAMINATION Vital signs reviewed. CONSTITUTIONAL: No apparent distress. HEENT: Head is normocephalic. Pupils are equal, round. Sclerae anicteric. Mucous membranes of the mouth are moist. No JVD. No carotid bruit. CHEST EXAMINATION: Lungs are clear to auscultation. No chest wall tenderness is noted on palpation or with deep breathing. HEART EXAMINATION: Regular rate and rhythm. S1, S2 heard. No murmurs, gallops or rub. ABDOMEN: Soft, nontender. Positive bowel sounds. EXTREMITIES: 2+ peripheral pulses, no lower extremity edema and no calf tenderness. NEUROLOGIC EXAMINATION: Patient is awake, alert and oriented x3. ASSESSMENT Persistent A. fib with RVR on presentation, currently better controlled Chest pain/abdominal pain, more likely GI source with elevated liver enzymes, elevated bilirubin and fevers. Acute Sohail syndrome ruled out CAD with prior bypass History of valvular replacement Hypertension Off of anticoagulation, related to nosebleeds and bruising in the past Hyperlipidemia Possible recent TIA PLAN Patient's main presentation more lower chest and upper abdominal pain more likely related to GI source with elevated liver enzymes, bilirubin and fevers. Currently symptoms have improved. Check 2-D echo to evaluate left ventricular function. Stop IV fluids as he appears volume resuscitated. Discussed role of anticoagulation and patient and family are agreeable. Likely start anticoagulation with Eliquis if no need for any surgical intervention. Assess coverage. Heart rates appear better controlled on home metoprolol, likely exacerbated by sepsis. Further recommendations to follow. Past Medical History Past Medical History: Diabetes Mellitus, Hyperlipidemia, Hypertension Additional Past Medical History / Comment(s): Quadruple bypass History of Any Multi-Drug Resistant Organisms: None Reported Past Surgical History: Coronary Bypass/CABG Additional Past Surgical History / Comment(s): valve replacement Past Psychological History: No Psychological Hx Reported Smoking Status: Former smoker Past Alcohol Use History: None Reported Past Drug Use History: None Reported Medications and Allergies Home Medications Medication Instructions Recorded Confirmed Type Aspirin EC [Ecotrin Low Dose] 81 mg PO DAILY 02/07/24 02/07/24 History Atorvastatin [Lipitor] 40 mg PO HS 02/07/24 02/07/24 History Doxycycline Hyclate 50 mg PO DAILY 02/07/24 02/07/24 History Finasteride [Proscar] 5 mg PO DAILY 02/07/24 02/07/24 History Gabapentin [Neurontin] 300 mg PO DAILY 02/07/24 02/07/24 History Gabapentin [Neurontin] 600 mg PO HS 02/07/24 02/07/24 History Losartan Potassium 100 mg PO DAILY 02/07/24 02/07/24 History Metoprolol Tartrate [Lopressor] 25 mg PO BID 02/07/24 02/07/24 History Nortriptyline [Pamelor] 25 mg PO HS 02/07/24 02/07/24 History Tamsulosin [Flomax] 0.4 mg PO PC-SUPPER 02/07/24 02/07/24 History metroNIDAZOLE 0.75% CREAM 1 applic TOPICAL BID 02/07/24 02/07/24 History [Metrocream 0.75%] metroNIDAZOLE [metroNIDAZOLE 0.75%] 1 applic TOPICAL BID 02/07/24 02/07/24 Hi story Allergies Allergy/AdvReac Type Severity Reaction Status Date / Time metformin AdvReac Diarrhea Verified 02/07/24 12:12 Physical Exam Vitals: Vital Signs Temp Pulse Pulse Resp BP BP Pulse Ox 02/08/24 08:15 98.3 F 68 16 138/76 98 02/08/24 04:30 64 17 123/72 96 02/08/24 00:30 60 17 99/62 95 02/07/24 22:40 98.4 F 68 17 100/59 94 L 02/07/24 21:45 69 18 110/62 94 L 02/07/24 16:44 80 17 112/56 93 L 02/07/24 16:09 99.0 F 108 H 22 110/58 94 L 02/07/24 14:00 106 H 22 158/80 94 L 02/07/24 13:50 100.4 F H 02/07/24 13:03 103.1 F H 111 H 18 172/83 94 L 02/07/24 12:16 99.9 F H 120 H 24 184/95 93 L Intake and Output 02/07/24 02/08/24 02/08/24 22:59 06:59 14:59 Intake Total 52.667 120 Balance 52.667 120 Intake: IV 10 Invasive Line 2 10 Intake, IV Titration 52.667 Amount Diltiazem 125 mg In 52.667 Sodium Chloride 0.9% 100 ml @ 5 MG/HR 5 mls/hr IV .Q24H [facility] Rx#:[id number] Oral 110 Other: Voiding Method External Catheter # Voids 1 Weight 106.141 kg Results 02/07/24 10:29 02/07/24 10:29 Current Medications Generic Name Dose Route Start Last Admin Trade Name Freq PRN Reason Stop Dose Admin Acetaminophen 650 mg 02/07/24 13:04 Acetaminophen Tab 325 Mg Tab PO Q6HR PRN Mild Pain or Fever > 100.5 Aspirin 81 mg 02/08/24 09:00 02/08/24 08:16 Aspirin 81 Mg PO 81 mg DAILY AILIN Administration Enoxaparin Sodium 40 mg 02/07/24 17:15 02/08/24 08:16 Enoxaparin 40 Mg/0.4 Ml Syringe SQ 40 mg DAILY AILIN Administration Finasteride 5 mg 02/08/24 09:00 02/08/24 08:16 Finasteride 5 Mg Tab PO 5 mg DAILY AILIN Administration Gabapentin 300 mg 02/08/24 09:00 02/08/24 08:16 Gabapentin 300 Mg Cap PO 300 mg DAILY AILIN Administration Gabapentin 600 mg 02/07/24 21:00 02/07/24 21:03 Gabapentin 300 Mg Cap PO 600 mg HS AILIN Administration Diltiazem HCl 125 mg/ Sodium 125 mls @ 5 mls/hr 02/07/24 12:50 02/07/24 23:30 Chloride IV 0 mg/hr .Q24H AILIN 0 mls/hr Infusion 5 MG/HR Azithromycin 500 mg/ Sodium 250 mls @ 250 mls/hr 02/08/24 16:00 Chloride IVPB 02/11/24 16:01 Q24H AILIN Protocol Ceftriaxone Sodium 1 gm/ 50 mls @ 100 mls/hr 02/08/24 09:00 02/08/24 08:16 Sodium Chloride IVPB 100 mls/hr Q24HR AILIN Administration Sodium Chloride 1,000 mls @ 75 mls/hr 02/07/24 13:15 02/08/24 06:27 Saline 0.9% IV 75 mls/hr .[id number] AILIN Administration Losartan Potassium 100 mg 02/08/24 09:00 02/08/24 08:16 Losartan 50 Mg Tab PO 100 mg DAILY AILIN Administration Metoprolol Tartrate 25 mg 02/07/24 21:00 02/08/24 08:16 Metoprolol Tartrate 25 Mg Tab PO 25 mg BID AILIN Administration Naloxone HCl 0.2 mg 02/07/24 13:04 Naloxone 0.4 Mg/Ml 1 Ml Vial IV Q2M PRN Opioid Reversal Nortriptyline HCl 25 mg 02/07/24 21:00 02/07/24 21:03 Nortriptyline 25 Mg Cap PO 25 mg HS AILIN Administration Tamsulosin HCl 0.4 mg 02/07/24 18:30 02/07/24 17:47 Tamsulosin 0.4 Mg Cap.Er.24h PO 0.4 mg PC-SUPPER AILIN Administration Intake and Output 02/07/24 02/08/24 02/08/24 22:59 06:59 14:59 Intake Total 52.667 120 Balance 52.667 120 Intake: IV 10 Invasive Line 2 10 Intake, IV Titration 52.667 Amount Diltiazem 125 mg In 52.667 Sodium Chloride 0.9% 100 ml @ 5 MG/HR 5 mls/hr IV .Q24H [facility] Rx#:[id number] Oral 110 Other: Voiding Method External Catheter # Voids 1 Weight 106.141 kg 02/07/24 10:29 02/07/24 10:29
[2024-02-08 13:31] LABS: ALT 224 U/L (4-49); African American GFR (CKD) 60 (>60 ml/min/1.73 sqM); Anion Gap 7 mmol/L; Blood Urea Nitrogen 25 mg/dL (9-20); Calcium 8.3 mg/dL (8.4-10.2); Carbon Dioxide 24 mmol/L (22-30); Chloride 108 mmol/L (98-107); Glucose 112 mg/dL (74-99); Non-African American GFR(CKD) 52 (>60 ml/min/1.73 sqM); Sodium 139 mmol/L (137-145); Total Bilirubin 5.6 mg/dL (0.2-1.3)
[2024-02-08 13:44] LABS: AST 333 U/L (17-59); Albumin 3.6 g/dL (3.5-5.0); Alkaline Phosphatase 196 U/L (38-126); Potassium 5.9 mmol/L (3.5-5.1)
--- NOTE | 2024-02-08 16:09 | P.PN ---
Progress Note - Text Progress Note Date: 02/08/24 Chief Complaint: Epigastric/chest pain This is a 88-year-old patient who follows with Dr. Klein. Chronic stable medical conditions include diabetes, hypertension, hyperlipidemia, coronary bypass, very hard of hearing. Patient does live by himself. Does use a walker. Lives at [facility]. Patient is accompanied by his son and grandson in the ER. Apparently patient had called his daughter this morning and had complained of chest pain. Later complaining of pain in the upper abdomen/epigastric area. Patient also had a cough. Also apparently had a fever. Because of patient's very hard of hearing patient not a very good historian. February 07: Patient admitted with pneumonia sepsis. Uncontrolled A-fib. On IV ceftriaxone and Zithromax. No fever overnight. Family at the bedside. Eating some. A bit tired. But looking better. Potassium is bit elevated with hemolysis.-Hold Cozaar. Note increased LFTs. Liver ultrasound showing fatty infiltration. Active Medications Acetaminophen (Acetaminophen Tab 325 Mg Tab) 650 mg PO Q6HR PRN PRN Reason: Mild Pain or Fever > 100.5 Aspirin (Aspirin 81 Mg) 81 mg PO DAILY [facility] Last Admin: 02/08/24 08:16 Dose: 81 mg Enoxaparin Sodium (Enoxaparin 100 Mg/Ml Syringe) 100 mg SQ BID [facility] Finasteride (Finasteride 5 Mg Tab) 5 mg PO DAILY [facility] Last Admin: 02/08/24 08:16 Dose: 5 mg Gabapentin (Gabapentin 300 Mg Cap) 300 mg PO DAILY [facility] Last Admin: 02/08/24 08:16 Dose: 300 mg Gabapentin (Gabapentin 300 Mg Cap) 600 mg PO HS [facility] Last Admin: 02/07/24 21:03 Dose: 600 mg Azithromycin 500 mg/ Sodium (Chloride) 250 mls @ 250 mls/hr IVPB Q24H [facility]; Protocol Stop: 02/11/24 16:01 Ceftriaxone Sodium 1 gm/ (Sodium Chloride) 50 mls @ 100 mls/hr IVPB Q24HR [facility] Last Admin: 02/08/24 08:16 Dose: 100 mls/hr Metoprolol Tartrate (Metoprolol Tartrate 25 Mg Tab) 25 mg PO BID [facility] Last Admin: 02/08/24 08:16 Dose: 25 mg Naloxone HCl (Naloxone 0.4 Mg/Ml 1 Ml Vial) 0.2 mg IV Q2M PRN PRN Reason: Opioid Reversal Nortriptyline HCl (Nortriptyline 25 Mg Cap) 25 mg PO HS [facility] Last Admin: 02/07/24 21:03 Dose: 25 mg Sodium Polystyrene Sulfonate (Sodium Polystyrene Sulfonate 15 Gm/60 Ml Bottle) 30 gm PO ONCE STA Stop: 02/08/24 16:03 Tamsulosin HCl (Tamsulosin 0.4 Mg Cap.Er.24h) 0.4 mg PO PC-SUPPER [facility] Last Admin: 02/07/24 17:47 Dose: 0.4 mg Social history: Smoked in the past. 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 Lives at [facility]. Does use a walker. Physical examination: VITAL SIGNS: 97.9, 71, 16, 137/86, 97% room air GENERAL: Reclining in bed, eating some lunch EYES: Pupils equal. Conjunctiva sreekanth l. HEENT: External appearance of nose and ears normal, oral cavity grossly normal. Very hard of hearing NECK: JVD not raised; masses not palpable. HEART: First and second heart sounds are normal; some edema. LUNGS: Respiratory rate increased; decreased breath sound. ABDOMEN: Soft, nontender, liver spleen not palpable, no masses palpable. PSYCH: Able to answer simple questions l. MUSCULOSKELETAL:No Clubbing/cyanosis;muscles-grossly intact. OA INVESTIGATIONS, reviewed in the clinical context: Liver ultrasound: Hepatic steatosis. February 07: Sodium 139 potassium 5.9. 25 creatinine 1.24 AST 333 ALT 224 February 06: White count 9.9 hemoglobin 13 platelets 132 sodium 140 potassium 5 BUN 17 creatinine 1.09 AST 392 ALT 136 Troponin I less than 0.024 Influenza type A, type B, RSV, COVID-19: Not detected EKG tracing personally reviewed by me-atrial fibrillation rate 140 Chest x-ray film personally reviewed by [id number] pleural effusion/atelectasis infiltrates Assessment plan: -Pneumonia suspect gram-negative organism causing sepsis IV ceftriaxone. Zithromax. Blood cultures -Severe sepsis from pneumonia IV fluids antibiotics -Hepatic steatosis. -Acute hepatitis, could be from sepsis Follow liver function -Hyperkalemia Kayexalate 30 g 1 dose. Renal diet.. 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 IV heparin discontinued. Lopressor. Renal diet. Kayexalate. Di scussed with family at bedside. Past Medical History Past Medical History: Diabetes Mellitus, Hyperlipidemia, Hypertension Additional Past Medical History / Comment(s): Quadruple bypass History of Any Multi-Drug Resistant Organisms: None Reported Past Surgical History: Coronary Bypass/CABG Additional Past Surgical History / Comment(s): valve replacement Past Psychological History: No Psychological Hx Reported Smoking Status: Former smoker Past Alcohol Use History: None Reported Past Drug Use History: None Reported
[2024-02-08 16:19] LABS: Glucose,Whole Blood 132 mg/dL (70-110)
[2024-02-08] MEDS: SODIUM POLYSTYRENE SULFONATE 15 GM/60 ML BOTTLE PO STA (16:27)
[2024-02-08] MEDS: AZITHROMYCIN 500 MG in SODIUM CHLORIDE 0.9% 250 ML IVPB SCH (16:27)
--- NOTE | 2024-02-08 18:07 | CA ---
Transthoracic Echo Report Name: Austyn Palacio Age: 88 Gender: M : 1935 Exam Date: 02/08/2024 14:11 Exam Location: [facility] Ht (in): 68 Wt (lb): 234 Ordering Physician: Stefan Dacosta DO ([email or web address]) Attending/Referring Phys: Paste Up Artist Coleen Solis, LIANA Procedure CPT: Indications: re: LV function, valve replacement Cardiac Hx: Technical Quality: Fair Contrast 1: Definity Total Dose (mL): 2 Contrast 2: Total Dose (mL): MEASUREMENTS (Male / Female) Normal Values 2D ECHO LV Diastolic Diameter PLAX 5.5 cm 4.2 - 5.9 / 3.9 - 5.3 cm LV Systolic Diameter PLAX 3.9 cm IVS Diastolic Thickness 1.1 cm 0.6 - 1.0 / 0.6 - 0.9 cm LVPW Diastolic Thickness 1.1 cm 0.6 - 1.0 / 0.6 - 0.9 cm LV Relative Wall Thickness 0.4 LVOT Diameter 2.5 cm LV Diastolic Volume MOD 4C 123.9 cm??? LV Systolic Volume MOD 4C 80.0 cm??? LV Ejection Fraction MOD 4C 35.4 % LV Cardiac Index MOD 4C 1509.4 cm???/min???m??? LV Diastolic Volume MOD 2C 123.2 cm??? LV Systolic Volume MOD 2C 88.1 cm??? LV Ejection Fraction MOD 2C 28.5 % LV Cardiac Index MOD 2C 1208.3 cm???/min???m??? LA Volume 90.2 cm??? 18 - 58 / 22 - 52 cm??? LA Volume Index 39.2 cm???/m??? 16 - 28 cm???/m??? DOPPLER AV Peak Velocity 109.0 cm/s AV Peak Gradient 4.8 mmHg AV Mean Velocity 74.3 cm/s AV Mean Gradient 3.0 mmHg AV Velocity Time Integral 18.5 cm LVOT Peak Velocity 65.4 cm/s LVOT Peak Gradient 1.7 mmHg LVOT Velocity Time Integral 10.9 cm LVOT Stroke Volume 53.7 cm??? LVOT Stroke Volume Index 24.6 ml/m??? LVOT Cardiac Index 1846.0 cm???/min???m??? AV Area Cont Eq vti 2.9 cm??? AV Area Cont Eq pk 2.9 cm??? Mitral E Point Velocity 105.0 cm/s Mitral A Point Velocity 55.5 cm/s Mitral E to A Ratio 1.9 MV Deceleration Time 170.5 ms LV E' Lateral Velocity 11.4 cm/s Mitral E to LV E' Lateral Ratio 9.2 TR Peak Velocity 308.0 cm/s TR Peak Gradient 37.9 mmHg PV Peak Velocity 81.3 cm/s PV Peak Gradient 2.6 mmHg FINDINGS Left Ventricle Left ventricular ejection fraction is estimated at 35-40 %. Mildly increased septal wall thickness. Left ventricular cavity size normal. Reduced global left ventricular systolic function. Right Ventricle Mild right ventricular dilatation. Mild pulmonary hypertension. Right Atrium Moderate right atrial dilatation. Left Atrium Moderately increased left atrial volume. Mildly increased left atrial area. Mitral Valve Structurally normal mitral valve. Mitral valve thickened. Moderate mitral annular calcification. Moderate mitral regurgitation. Aortic Valve Normally functioning prosthetic aortic valve. Trace aortic regurgitation. Tricuspid Valve Structurally normal tricuspid valve. Moderate tricuspid regurgitation. Pulmonic Valve Structurally normal pulmonic valve. Trace pulmonic regurgitation. Pericardium Minimal pericardial effusion (normal variant). Prominent epicardial fat. Aorta Aortic root and proximal ascending aorta not well visualized. CONCLUSIONS Left ventricular ejection fraction is estimated at 35-40 %. Reduced global left ventricular systolic function, most in the basal segments. Mild right ventricular dilatation. RVSP estimated 38 mmHg Moderate biatrial dilatation Moderate mitral regurgitation. Moderate mitral calcification Moderate tricuspid regurg Previewed by: Dr Neil Gallego (Electronically Signed) Final Date: 08 February 2024 18:06
[2024-02-08] MEDS: CALCIUM CARBONATE 500 MG CHEWABLE PO PRN (19:53)
[2024-02-08] MEDS: ACETAMINOPHEN TAB 325 MG TAB PO PRN (19:53)
[2024-02-08] MEDS: MORPHINE SULFATE 2 MG/ML SYRINGE IVP STA (20:13)
[2024-02-08] MEDS: ENOXAPARIN 100 MG/ML SYRINGE SQ SCH (20:14)
[2024-02-08 20:30] LABS: Glucose,Whole Blood 152 mg/dL (70-110)
[2024-02-09 06:07] LABS: Glucose,Whole Blood 117 mg/dL (70-110)
[2024-02-09 09:19] LABS: ALT 161 U/L (4-49); AST 134 U/L (17-59); African American GFR (CKD) 71 (>60 ml/min/1.73 sqM); Albumin 2.8 g/dL (3.5-5.0); Alkaline Phosphatase 192 U/L (38-126); Anion Gap 5 mmol/L; Blood Urea Nitrogen 24 mg/dL (9-20); Calcium 8.4 mg/dL (8.4-10.2); Carbon Dioxide 25 mmol/L (22-30); Chloride 110 mmol/L (98-107); Glucose 120 mg/dL (74-99); Non-African American GFR(CKD) 61 (>60 ml/min/1.73 sqM); Potassium 4.3 mmol/L (3.5-5.1); Sodium 140 mmol/L (137-145); Total Bilirubin 4.2 mg/dL (0.2-1.3); Total Protein 5.6 g/dL (6.3-8.2)
[2024-02-09 11:17] LABS: Glucose,Whole Blood 144 mg/dL (70-110)
[2024-02-09] MEDS: PANTOPRAZOLE 40 MG TABLET PO SCH (12:52)
[2024-02-09] MEDS: IOPAMIDOL CONTRAST (ORAL USE) VIAL PO PRN (12:52)
--- NOTE | 2024-02-09 13:27 | P.GSCN ---
History of Present Illness Consult date: 02/09/24 Reason for Consult: Epigastric abdominal pain History of present illness: 88-year-old male apparently came to the hospital 2 days ago for epigastric pain. Patient states this began around that time. Pain is across the upper abdomen. Not necessarily worse on the right or left hand side. Mild nausea. No vomiting. Patient with fever of 103 and elevated white blood cell count of 18,000. Patient's liver enzymes were elevated. History of previous CABG. Patient had an abdominal ultrasound showing a gallbladder that appeared normal however was visualized and in the limited fashion. Feels slightly better today but states the pain has been bringing him to tears at times. No history of previous ulcer disease or gallbladder disease that he is aware of. Over the last 2 days his white blood cell count has improved. No longer having fevers. Liver enzymes have increased however from admission. E. coli found on recent blood culture. Review of Systems The patient denies any acute changes in vision or hearing, no dysphagia or odynophagia, no chest pain or shortness of breath, no dysuria or hematuria, no headache, no runny nose, no rectal bleeding or melena, no unexplained weight loss Past Medical History Past Medical History: Diabetes Mellitus, Hyperlipidemia, Hypertension Additional Past Medical History / Comment(s): Quadruple bypass History of Any Multi-Drug Resistant Organisms: None Reported Past Surgical History: Coronary Bypass/CABG Additional Past Surgical History / Comment(s): valve replacement Past Psychological History: No Psychological Hx Reported Smoking Status: Former smoker Past Alcohol Use History: None Reported Past Drug Use History: None Reported Medications and Allergies Home Medications Medication Instructions Recorded Confirmed Type Aspirin EC [Ecotrin Low Dose] 81 mg PO DAILY 02/07/24 02/07/24 History Atorvastatin [Lipitor] 40 mg PO HS 02/07/24 02/07/24 History Doxycycline Hyclate 50 mg PO DAILY 02/07/24 02/07/24 History Finasteride [Proscar] 5 mg PO DAILY 02/07/24 02/07/24 History Gabapentin [Neurontin] 300 mg PO DAILY 02/07/24 02/07/24 History Gabapentin [Neurontin] 600 mg PO HS 02/07/24 02/07/24 History Losartan Potassium 100 mg PO DAILY 02/07/24 02/07/24 History Metoprolol Tartrate [Lopressor] 25 mg PO BID 02/07/24 02/07/24 History Nortriptyline [Pamelor] 25 mg PO HS 02/07/24 02/07/24 History Tamsulosin [Flomax] 0.4 mg PO PC-SUPPER 02/07/24 02/07/24 History metroNIDAZOLE 0.75% CREAM 1 applic TOPICAL BID 02/07/24 02/07/24 History [Metrocream 0.75%] metroNIDAZOLE [metroNIDAZOLE 0.75%] 1 applic TOPICAL BID 02/07/24 02/07/24 History Allergies Allergy/AdvReac Type Severity Reaction Status Date / Time metformin AdvReac Diarrhea Verified 02/07/24 12:12 Surgical - Exam Vital Signs Temp Pulse Resp BP Pulse Ox 97.8 F 79 20 132/65 98 02/07/24 10:12 02/07/24 10:12 02/07/24 10:12 02/07/24 10:12 02/07/24 10:12 Physical exam: General: Well-developed, well-nourished HEENT: Normocephalic, sclerae nonicteric Abdomen: Epigastric tenderness, mild distention Extremities: No edema Neuro: Alert and oriented Results - Labs 02/07/24 10:29 02/09/24 08:04 Abnormal Lab Results - Last 24 Hours (Table) 02/08/24 02/08/24 02/08/24 Range/Units 11:29 15:25 16:16 Potassium 5.9 H (3.5-5.1) mmol/L Chloride 108 H (98-107) mmol/L BUN 25 H (9-20) mg/dL Glucose 112 H (74-99) mg/dL POC Glucose (mg/dL) 132 H (70-110) mg/dL Calcium 8.3 L (8.4-10.2) mg/dL Total Bilirubin 5.6 H (0.2-1.3) mg/dL AST 333 H (17-59) U/L ALT 224 H (4-49) U/L Alkaline Phosphatase 196 H (38-126) U/L Troponin I 0.058 H* (0.000-0.034) ng/mL Total Protein (6.3-8.2) g/dL Albumin (3.5-5.0) g/dL 02/08/24 02/08/24 02/09/24 Range/Units 19:39 20:28 06:06 Potassium (3.5-5.1) mmol/L Chloride (98-107) mmol/L BUN (9-20) mg/dL Glucose (74-99) mg/dL POC Glucose (mg/dL) 152 H 117 H (70-110) mg/dL Calcium (8.4-10.2) mg/dL Total Bilirubin (0.2-1.3) mg/dL AST (17-59) U/L ALT (4-49) U/L Alkaline Phosphatase (38-126) U/L Troponin I 0.047 H* (0.000-0.034) ng/mL Total Protein (6.3-8.2) g/dL Albumin (3.5-5.0) g/dL 02/09/24 02/09/24 Range/Units 08:04 11:16 Potassium (3.5-5.1) mmol/L Chloride 110 H (98-107) mmol/L BUN 24 H (9-20) mg/dL Glucose 120 H (74-99) mg/dL POC Glucose (mg/dL) 144 H (70-110) mg/dL Calcium (8.4-10.2) mg/dL Total Bilirubin 4.2 H (0.2-1.3) mg/dL AST 134 H (17-59) U/L ALT 161 H (4-49) U/L Alkaline Phosphatase 192 H (38-126) U/L Troponin I (0.000-0.034) ng/mL Total Protein 5.6 L (6.3-8.2) g/dL Albumin 2.8 L (3.5-5.0) g/dL Microbiology - Last 24 Hours (Table) 02/07/24 12:57 Blood Culture Gram Stain - Preliminary Blood Blood Culture - Preliminary Escherichia coli Molecular ID Diabetes panel 02/08/24 02/09/24 Range/Units 11:29 08:04 Sodium 139 140 (137-145) mmol/L Potassium 5.9 H 4.3 (3.5-5.1) mmol/L Chloride 108 H 110 H (98-107) mmol/L Carbon Dioxide 24 25 (22-30) mmol/L BUN 25 H 24 H (9-20) mg/dL Creatinine 1.24 1.08 (0.66-1.25) mg/dL Glucose 112 H 120 H (74-99) mg/dL Calcium 8.3 L 8.4 (8.4-10.2) mg/dL AST 333 H 134 H (17-59) U/L ALT 224 H 161 H (4-49) U/L Alkaline Phosphatase 196 H 192 H (38-126) U/L Total Protein 7.0 5.6 L (6.3-8.2) g/dL Albumin 3.6 2.8 L (3.5-5.0) g/dL Calcium panel 02/08/24 02/09/24 Range/Units 11:29 08:04 Calcium 8.3 L 8.4 (8.4-10.2) mg/dL Albumin 3.6 2.8 L (3.5-5.0) g/dL Pituitary panel 02/08/24 02/09/24 Range/Units 11:29 08:04 Sodium 139 140 (137-145) mmol/L Potassium 5.9 H 4.3 (3.5-5.1) mmol/L Chloride 108 H 110 H (98-107) mmol/L Carbon Dioxide 24 25 (22-30) mmol/L BUN 25 H 24 H (9-20) mg/dL Creatinine 1.24 1.08 (0.66-1.25) mg/dL Glucose 112 H 120 H (74-99) mg/dL Calcium 8.3 L 8.4 (8.4-10.2) mg/dL Adrenal panel 02/08/24 02/09/24 Range/Units 11:29 08:04 Sodium 139 140 (137-145) mmol/L Potassium 5.9 H 4.3 (3.5-5.1) mmol/L Chloride 108 H 110 H (98-107) mmol/L Carbon Dioxide 24 25 (22-30) mmol/L BUN 25 H 24 H (9-20) mg/dL Creatinine 1.24 1.08 (0.66-1.25) mg/dL Glucose 112 H 120 H (74-99) mg/dL Calcium 8.3 L 8.4 (8.4-10.2) mg/dL Total Bilirubin 5.6 H 4.2 H (0.2-1.3) mg/dL AST 333 H 134 H (17-59) U/L ALT 224 H 161 H (4-49) U/L Alkaline Phosphatase 196 H 192 H (38-126) U/L Total Protein 7.0 5.6 L (6.3-8.2) g/dL Albumin 3.6 2.8 L (3.5-5.0) g/dL Assessment and Plan (1) Epigastric pain Narrative/Plan: 88-year-old male with 2-day history of epigastric pain along with leukocytosis and gram-negative bacteremia. Patient's lab values suggest the possibility of ascending cholangitis. Await CAT scan findings that was ordered today. If CAT scan suggesting possible cholangitis recommend urgent transfer since we have no GI coverage. Continue antibiotic coverage. Consider infectious disease consult. Will follow. Current Visit: Yes Status: Acute Code(s): R10.13 - EPIGASTRIC PAIN SNOMED Code(s): 05708873
--- NOTE | 2024-02-09 13:50 | P.PN ---
Progress Note - Text Progress Note Date: 02/09/24 Chief Complaint: Epigastric/chest pain This is a 88-year-old patient who follows with Dr. Klein. Chronic stable medical conditions include diabetes, hypertension, hyperlipidemia, coronary bypass, very hard of hearing. Patient does live by himself. Does use a walker. Lives at [facility]. Patient is accompanied by his son and grandson in the ER. Apparently patient had called his daughter this morning and had complained of chest pain. Later complaining of pain in the upper abdomen/epigastric area. Patient also had a cough. Also apparently had a fever. Because of patient's very hard of hearing patient not a very good historian. February 07: Patient admitted with pneumonia sepsis. Uncontrolled A-fib. On IV ceftriaxone and Zithromax. No fever overnight. Family at the bedside. Eating some. A bit tired. But looking better. Potassium is bit elevated with hemolysis.-Hold Cozaar. Note increased LFTs. Liver ultrasound showing fatty infiltration. February 08: Patient continues to complain of intermittent abdominal pain. Sometimes after eating. Had some pain last night and also this morning. Ultrasound was unremarkable. CT abdomen ordered. Discussed with the patient. General surgery consulted. No further respiratory symptoms Active Medications Acetaminophen (Acetaminophen Tab 325 Mg Tab) 650 mg PO Q6HR PRN PRN Reason: Mild Pain or Fever > 100.5 Last Admin: 02/08/24 19:53 Dose: 650 mg Aspirin (Aspirin 81 Mg) 81 mg PO DAILY PENDING SALE TO [facility] Last Admin: 02/09/24 09:22 Dose: 81 mg Calcium Carbonate/Glycine (Calcium Carbonate 500 Mg Chewable) 500 mg PO TID PRN PRN Reason: Heartburn Last Admin: 02/08/24 19:53 Dose: 500 mg Enoxaparin Sodium (Enoxaparin 100 Mg/Ml Syringe) 100 mg SQ BID PENDING SALE TO [facility] Last Admin: 02/09/24 09:22 Dose: 100 mg Finasteride (Finasteride 5 Mg Tab) 5 mg PO DAILY PENDING SALE TO [facility] Last Admin: 02/09/24 09:22 Dose: 5 mg Gabapentin (Gabapentin 300 Mg Cap) 300 mg PO DAILY PENDING SALE TO [facility] Last Admin: 02/09/24 09:22 Dose: 300 mg Gabapentin (Gabapentin 300 Mg Cap) 600 mg PO HS PENDING SALE TO [facility] Last Admin: 02/08/24 20:14 Dose: 600 mg Azithromycin 500 mg/ Sodium (Chloride) 250 mls @ 250 mls/hr IVPB Q24H PENDING SALE TO [facility]; Protocol Stop: 02/11/24 16:01 Last Admin: 02/08/24 16:27 Dose: 250 mls/hr Ceftriaxone Sodium 1 gm/ (Sodium Chloride) 50 mls @ 100 mls/hr IVPB Q24HR PENDING SALE TO [facility] Last Admin: 02/09/24 09:22 Dose: 100 mls/hr Iopamidol (Iopamidol Contrast (Oral Use) Vial) 30 ml PO Q60M PRN PRN Reason: CT Scan Stop: 02/10/24 11:23 Last Admin: 02/09/24 12:52 Dose: 30 ml Metoprolol Tartrate (Metoprolol Tartrate 25 Mg Tab) 25 mg PO BID PENDING SALE TO [facility] Last Admin: 02/09/24 09:22 Dose: 25 mg Naloxone HCl (Naloxone 0.4 Mg/Ml 1 Ml Vial) 0.2 mg IV Q2M PRN PRN Reason: Opioid Reversal Nortriptyline HCl (Nortriptyline 25 Mg Cap) 25 mg PO HS PENDING SALE TO [facility] Last Admin: 02/08/24 20:14 Dose: 25 mg Pantoprazole Sodium (Pantoprazole 40 Mg Tablet) 40 mg PO AC-BID PENDING SALE TO [facility] Last Admin: 02/09/24 12:52 Dose: 40 mg Tamsulosin HCl (Tamsulosin 0.4 Mg Cap.Er.24h) 0.4 mg PO PC-SUPPER PENDING SALE TO [facility] Last Admin: 02/08/24 16:27 Dose: 0.4 mg Social history: Smoked in the past. 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 Lives at [facility]. Does use a walker. Physical examination: VITAL SIGNS: 97.9, 71, 16, 137/86, 97% room air GENERAL: Reclining in bed, eating some lunch EYES: Pupils equal. Conjunctiva sreekanth l. HEENT: External appearance of nose and ears normal, oral cavity grossly normal. Very hard of hearing NECK: JVD not raised; masses not palpable. HEART: First and second heart sounds are normal; some edema. LUNGS: Respiratory rate increased; decreased breath sound. ABDOMEN: Soft, upper abdomen right upper quadrant epigastric tenderness, liver spleen not palpable, no masses palpable. PSYCH: Able to answer simple questions l. MUSCULOSKELETAL:No Clubbing/cyanosis;muscles-grossly intact. OA INVESTIGATIONS, reviewed in the clinical context: Liver ultrasound: Hepatic steatosis. February 07: Sodium 139 potassium 5.9. 25 creatinine 1.24 AST 333 ALT 224 February 06: White count 9.9 hemoglobin 13 platelets 132 sodium 140 potassium 5 BUN 17 creatinine 1.09 AST 392 ALT 136 Troponin I less than 0.024 Influenza type A, type B, RSV, COVID-19: Not detected EKG tracing personally reviewed by me-atrial fibrillation rate 140 Chest x-ray film personally reviewed by [id number] pleural effusion/atelectasis infiltrates Assessment plan: -Pneumonia suspect gram-negative organism causing sepsis: Better IV ceftriaxone. Zithromax. Blood cultures -Severe sepsis from pneumonia: Better IV fluids antibiotics -Hepatic steatosis. -Abdominal pain: Acute hepatitis, could be from sepsis/consider cholangitis, acalculous cholecystitis: New diagnosis CT scan abdomen Consult Dr. Dorado -Hyperkalemia: Corrected Kayexalate 30 g 1 dose. 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 Consult surgery. Continue antibiotics. Past Medical History Past Medical History: Diabetes Mellitus, Hyperlipidemia, Hypertension Additional Past Medical History / Comment(s): Quadruple bypass History of Any Multi-Drug Resistant Organisms: None Reported Past Surgical History: Coronary Bypass/CABG Additional Past Surgical History / Comment(s): valve replacement Past Psychological History: No Psychological Hx Reported Smoking Status: Former smoker Past Alcohol Use History: None Reported Past Drug Use History: None Reported
[2024-02-09 16:31] LABS: Glucose,Whole Blood 95 mg/dL (70-110)
[2024-02-09] MEDS ORDERED: IBUPROFEN 600 MG TAB PO PRN (18:44)
[2024-02-09] MEDS ORDERED: HYDROmorphone 1 MG/ML 1 ML SYRINGE IVP PRN (18:44)
[2024-02-09] MEDS: HYDROcodone/APAP 5-325MG 1 EACH TAB PO PRN (18:56)
[2024-02-09] MEDS: HYDROmorphone 0.5 MG/0.5 ML SYRINGE IVP PRN (19:43)
[2024-02-09 20:00] LABS: Glucose,Whole Blood 105 mg/dL (70-110)
--- NOTE | 2024-02-09 21:33 | P.PN ---
Subjective HISTORY OF PRESENTING ILLNESS This is a pleasant 88-year-old with past medical history significant for hypertension, hyperlipidemia, coronary artery disease status post CABG as well as valve replacement 2007, obesity, persistent atrial fibrillation with patient being brought off of anticoagulation a few years ago, possible TIA. He does not see a welcome wagon host/hostess however [place] host[place]hostess. He was having issues with rare falls and some bruising as well as nosebleed and had tried novel oral anticoagulation however too expensive and switched to Coumadin and eventually this was discontinued. He states approximately 3 weeks ago he had concern of possible TIA however stayed at home. Since then he has been feeling okay however over the last one day he started to develop chest pain radiating across his lower chest and upper abdomen and could not sit down and get comfortable. He has had some diarrhea. He was found to have fever of 103, increased liver enzymes as well as bilirubin. Abdominal ultrasound did not show any significant gallstones however technically difficult. He states he feels better today. Usually does not get much chest pain. Troponin 1 was normal. EKG he'll initially showing A. fib with controlled rate however increased up to 140 with A. fib with right bundle branch block and nonspecific ST depressions. 02/08 Patient seen and examined. He states overall he is feeling somewhat better. Denies any chest pain or pressure. Surgery team saw the patient and ordered CT abdomen and pelvis with CT performed however not interpreted yet. Bilirubin 4.2, AST 134, ALT 161, alk phos 192, creatinine 1.0. HR's in the 90-100 range. Echocardiogram performed which shows EF 35-40% with RVSP 38 and moderate mitral regurgitation and moderate tricuspid regurgitation PHYSICAL EXAMINATION Vital signs reviewed. CONSTITUTIONAL: No apparent distress. HEENT: Head is normocephalic. Pupils are equal, round. Sclerae anicteric. Mucous membranes of the mouth are moist. No JVD. No carotid bruit. CHEST EXAMINATION: Lungs are clear to auscultation. No chest wall tenderness is noted on palpation or with deep breathing. HEART EXAMINATION: Regular rate and rhythm. S1, S2 heard. No murmurs, gallops or rub. ABDOMEN: Soft, nontender. Positive bowel sounds. EXTREMITIES: 2+ peripheral pulses, no lower extremity edema and no calf tenderness. NEUROLOGIC EXAMINATION: Patient is awake, alert and oriented x3. ASSESSMENT Persistent A. fib with RVR on presentation, currently better controlled Chest pain/abdominal pain, more likely GI source with elevated liver enzymes, elevated bilirubin and fevers. Acute Sohail syndrome ruled out CAD with prior bypass History of valvular replacement Hypertension Off of anticoagulation, related to nosebleeds and bruising in the past Hyperlipidemia Possible recent TIA ischemic cardiomyopathy EF 35-40% E coli bacteremia PLAN Patient's main presentation more lower chest and upper abdominal pain more likely related to GI source with elevated liver enzymes, bilirubin and fevers and bacteremia. echo showing EF 35-40% and does have a history of bypass in the past and some wall motion abnormalities possibly more chronic. recommend anticoagulation if no surgical intervention to be performed. Especially given concern of TIA type symptoms a few weeks ago. Await CT results Objective - Vital Signs Vital signs: Vital Signs Temp 98.3 F 02/09/24 19:39 Pulse 106 H 02/09/24 19:39 Resp 20 02/09/24 19:39 BP 162/103 02/09/24 19:39 Pulse Ox 96 02/09/24 19:39 FiO2 Intake & Output 02/09/24 02/09/24 02/10/24 06:59 18:59 06:59 Intake Total 20 230 Output Total 550 200 Balance 20 -320 -200 Weight 112.2 kg Intake: IV 20 Invasive Line 2 20 Intake, IV Titration 50 Amount cefTRIAXone 1 gm In 50 Sodium Chloride 0.9% 50 ml @ 100 mls/hr IVPB Q24HR [facility] Rx#:[id number] Oral 180 Output: Urine 550 200 Other: Voiding Method External Catheter # Bowel Movements 0 - Labs CBC & Chem 7: 02/07/24 10:29 02/09/24 08:04 Labs: Abnormal Lab Results - Last 24 Hours (Table) 02/09/24 02/09/24 02/09/24 Range/Units 06:06 08:04 11:16 Chloride 110 H (98-107) mmol/L BUN 24 H (9-20) mg/dL Glucose 120 H (74-99) mg/dL POC Glucose (mg/dL) 117 H 144 H (70-110) mg/dL Total Bilirubin 4.2 H (0.2-1.3) mg/dL AST 134 H (17-59) U/L ALT 161 H (4-49) U/L Alkaline Phosphatase 192 H (38-126) U/L Total Protein 5.6 L (6.3-8.2) g/dL Albumin 2.8 L (3.5-5.0) g/dL Microbiology - Last 24 Hours (Table) 02/07/24 12:57 Blood Culture - Preliminary Blood 02/07/24 12:57 Blood Culture Gram Stain - Preliminary Blood Blood Culture - Preliminary Escherichia coli Molecular ID
--- NOTE | 2024-02-09 23:35 | CT ---
EXAMINATION TYPE: CT abdomen pelvis w con DATE OF EXAM: 02/09/2024 COMPARISON: Ultrasound abdomen limited two days earlier. HISTORY: Upper abdominal pain. CT DLP: 1919.7 mGycm, Automated Exposure Control for Dose Reduction was Utilized. CONTRAST: CT scan of the abdomen and pelvis is performed with oral and with IV Contrast, patient injected with 100 mL of Isovue 300. FINDINGS: LUNG BASES: Small to tiny right greater than left pleural effusions with associated right basilar com pressive atelectasis and/or consolidation. Some acute pulmonary embolism into the right lower lobe is appreciated coronal image 76 and axial image 2 for reference. Cardiomegaly is present. Overlying joana rnal wires. LIVER/GB: Heterogeneous hypodense appearance to liver consistent with fatty infiltrative hepatocellul ar disease. Gallbladder has distended margins. Mild central intrahepatic biliary dilatation up to 15 mm coronal image 51. There is tapering towards the ampulla. Tiny dependent gallstones in gallbladder coronal image 55. PANCREAS: Mild to moderate generalized atrophy. SPLEEN: No significant abnormality is seen. ADRENALS: No significant abnormality is seen. KIDNEYS: Cortical thinning in both kidneys with simple appearing thin-walled cysts. Findings consiste nt with products of chronic medical renal disease. No hydronephrosis seen bilaterally. BOWEL: Normal appearing appendix from cecum. No abnormal small or large bowel dilatation. Oral contra st does not reach colonic level. PROSTATE/SEMINAL VESICLES: No gross abnormality seen. LYMPH NODES: No greater than 1cm abdominal or pelvic lymph nodes are appreciated. OSSEOUS STRUCTURES: Moderate axial narrowing and spurring of both hip joints. Exaggerated lumbar lord osis. Bridging osteophytes in the thoracic spine. Grade 1 retrolisthesis L1 on L2 with advanced disc space narrowing. Moderate to advanced disc space narrowing and vacuum disc phenomenon at L2-L3 level. Multilevel facet arthropathy in the lumbar spine OTHER: Mild to moderate diffuse subcutaneous edema. Small fat-containing umbilical hernia sagittal im age 73. IMPRESSION: 1. Small dependent gallstones. Gallbladder has distended margins. Acute cholecystitis cannot be exclu ded. Consider HIDA scan follow-up. Mild central intrahepatic biliary dilatation noted. Diffuse fatty infiltrative hepatocellular disease is present. 2. Partially occlusive acute pulmonary embolism in the right lower lobe is identified. Results communicated to patient's nurse by x-ray technologist at time of dictation.
[2024-02-10 05:52] LABS: Glucose,Whole Blood 78 mg/dL (70-110)
[2024-02-10 05:53] LABS: ALT 116 U/L (4-49); AST 72 U/L (17-59); African American GFR (CKD) >90 (>60 ml/min/1.73 sqM); Albumin 2.8 g/dL (3.5-5.0); Alkaline Phosphatase 249 U/L (38-126); Anion Gap 7 mmol/L; Blood Urea Nitrogen 21 mg/dL (9-20); Calcium 8.4 mg/dL (8.4-10.2); Carbon Dioxide 23 mmol/L (22-30); Chloride 109 mmol/L (98-107); Glucose 88 mg/dL (74-99); Non-African American GFR(CKD) 81 (>60 ml/min/1.73 sqM); Potassium 4.2 mmol/L (3.5-5.1); Sodium 139 mmol/L (137-145); Total Bilirubin 5.6 mg/dL (0.2-1.3); Total Protein 5.7 g/dL (6.3-8.2)
[2024-02-10 06:13] LABS: Basophils % (A) 0 %; Eosinophils # (A) 0.1 k/uL (0-0.7); Eosinophils % (A) 1 %; HCT 44.7 % (39.0-53.0); HGB 13.4 gm/dL (13.0-17.5); Hypochromasia Moderate; Lymphocytes # (A) 0.9 k/uL (1.0-4.8); Lymphocytes % (A) 8 %; MCH 29.6 pg (25.0-35.0); MCHC 30.1 g/dL (31.0-37.0); MCV 98.5 fL (80.0-100.0); Macrocytosis Slight; Mean Platelet Volume 10.2; Monocytes # (A) 0.5 k/uL (0-1.0); Monocytes % (A) 5 %; Neutrophils # (A) 9.6 k/uL (1.3-7.7); Neutrophils % (A) 85 %; Platelet Count 105 k/uL (150-450); RBC 4.54 m/uL (4.30-5.90); RDW 15.7 % (11.5-15.5); WBC 11.3 k/uL (3.8-10.6)
[2024-02-10 11:38] LABS: Glucose,Whole Blood 106 mg/dL (70-110)
--- NOTE | 2024-02-10 15:31 | P.PN ---
Subjective Progress Note Date: 02/10/24 HISTORY OF PRESENTING ILLNESS This is a pleasant 88-year-old with past medical history significant for hyp ertension, hyperlipidemia, coronary artery disease status post CABG as well as valve replacement 2007, obesity, persistent atrial fibrillation with patient being brought off of anticoagulation a few years ago, possible TIA. He does not see a sloop captain however [place] sloop captain. He was having issues with rare falls and some bruising as well as nosebleed and had tried novel oral anticoagulation however too expensive and switched to Coumadin and eventually this was discontinued. He states approximately 3 weeks ago he had concern of possible TIA however stayed at home. Since then he has been feeling okay however over the last one day he started to develop chest pain radiating across his lower chest and upper abdomen and could not sit down and get comfortable. He has had some diarrhea. He was found to have fever of 103, increased liver enzymes as well as bilirubin. Abdominal ultrasound did not show any significant gallstones however tech nically difficult. He states he feels better today. Usually does not get much chest pain. Troponin 1 was normal. EKG he'll initially showing A. fib with controlled rate however increased up to 140 with A. fib with right bundle branch block and nonspecific ST depressions. 02/08 Patient seen and examined. He states overall he is feeling somewhat better. Denies any chest pain or pressure. Surgery team saw the patient and ordered CT abdomen and pelvis with CT performed however not interpreted yet. Bilirubin 4.2, AST 134, ALT 161, alk phos 192, creatinine 1.0. HR's in the 90-100 range. Echocardiogram performed which shows EF 35-40% with RVSP 38 and moderate mitral regurgitation and moderate tricuspid regurgitation 02/09 Patient reports that he has been feeling okay. He denies any chest pain or pressure. He has been off oxygen and is doing well. His abdomen is feeling slightly better. PHYSICAL EXAMINATION Vital signs reviewed. CONSTITUTIONAL: No apparent distress. HEENT: Head is normocephalic. Pupils are equal, round. Sclerae anicteric. Mucous membranes of the mouth are moist. No JVD. No carotid bruit. CHEST EXAMINATION: Lungs are clear to auscultation. No chest wall tenderness is noted on palpation or with deep breathing. HEART EXAMINATION: Regular rate and rhythm. S1, S2 heard. No murmurs, gallops or rub. ABDOMEN: Soft, nontender. Positive bowel sounds. EXTREMITIES: 2+ peripheral pulses, no lower extremity edema and no calf tenderness. NEUROLOGIC EXAMINATION: Patient is awake, alert and oriented x3. ASSESSMENT Persistent A. fib with RVR on presentation, currently better controlled Chest pain/abdominal pain, more likely GI source with elevated liver enzymes, elevated bilirubin and fevers. Acute Sohail syndrome ruled out CAD with prior bypass History of valvular replacement Hypertension Off of anticoagulation, related to nosebleeds and bruising in the past Hyperlipidemia Possible recent TIA ischemic cardiomyopathy EF 35-40% E coli bacteremia PLAN Patient's main presentation more lower chest and upper abdominal pain more likely related to GI source with elevated liver enzymes, bilirubin and fevers and bacteremia. Echo showing EF 35-40% and does have a history of bypass in the past and some wall motion abnormalities possibly more chronic. Recommend anticoagulation if no surgical intervention to be performed. He is on lovenox. Especially given concern of TIA type symptoms a few weeks ago. CT did revealed gallstones, for which pt states that he is awaiting transfer to another facility. Patient seen and examined in rounds with Dr. Dacosta, plan of care agreed upon. Objective - Vital Signs Vital signs: Vital Signs Temp 98.3 F 02/10/24 08:00 Pulse 70 02/10/24 12:00 Resp 20 02/10/24 08:00 BP 146/75 02/10/24 12:00 Pulse Ox 97 02/10/24 12:00 FiO2 Intake & Output 02/09/24 02/10/24 02/10/24 18:59 06:59 18:59 Intake Total 230 Output Total 550 200 Balance -320 -200 Weight 112.2 kg Intake: Intake, IV Titration 50 Amount cefTRIAXone 1 gm In 50 Sodium Chloride 0.9% 50 ml @ 100 mls/hr IVPB Q24HR [facility] Rx#:[id number] Oral 180 Output: Urine 550 200 Other: Voiding Method External Catheter External Catheter # Voids 1 # Bowel Movements 0 - Labs CBC & Chem 7: 02/10/24 05:15 02/10/24 05:15 Labs: Abnormal Lab Results - Last 24 Hours (Table) 02/10/24 02/10/24 Range/Units 05:15 05:15 WBC 11.3 H (3.8-10.6) k/uL MCHC 30.1 L (31.0-37.0) g/dL RDW 15.7 H (11.5-15.5) % Plt Count 105 L (150-450) k/uL Neutrophils # 9.6 H (1.3-7.7) k/uL Lymphocytes # 0.9 L (1.0-4.8) k/uL Chloride 109 H (98-107) mmol/L BUN 21 H (9-20) mg/dL Total Bilirubin 5.6 H (0.2-1.3) mg/dL AST 72 H (17-59) U/L ALT 116 H (4-49) U/L Alkaline Phosphatase 249 H (38-126) U/L Total Protein 5.7 L (6.3-8.2) g/dL Albumin 2.8 L (3.5-5.0) g/dL Microbiology - Last 24 Hours (Table) 02/07/24 12:57 Blood Culture Gram Stain - Final Blood Blood Culture - Final Escherichia coli Molecular ID 02/07/24 12:57 Blood Culture - Preliminary Blood
[2024-02-10 16:21] LABS: Glucose,Whole Blood 135 mg/dL (70-110)
--- NOTE | 2024-02-10 16:44 | P.PN ---
Progress Note - Text Progress Note Date: 02/10/24 Chief Complaint: Epigastric/chest pain This is a 88-year-old patient who follows with Dr. Klein. Chronic stable medical conditions include diabetes, hypertension, hyperlipidemia, coronary bypass, very hard of hearing. Patient does live by himself. Does use a walker. Lives at [facility]. Patient is accompanied by his son and grandson in the ER. Apparently patient had called his daughter this morning and had complained of chest pain. Later complaining of pain in the upper abdomen/epigastric area. Patient also had a cough. Also apparently had a fever. Because of patient's very hard of hearing patient not a very good historian. February 07: Patient admitted with pneumonia sepsis. Uncontrolled A-fib. On IV ceftriaxone and Zithromax. No fever overnight. Family at the bedside. Eating some. A bit tired. But looking better. Potassium is bit elevated with hemolysis.-Hold Cozaar. Note increased LFTs. Liver ultrasound showing fatty infiltration. February 08: Patient continues to complain of intermittent abdominal pain. Sometimes after eating. Had some pain last night and also this morning. Ultrasound was unremarkable. CT abdomen ordered. Discussed with the patient. General surgery consulted. No further respiratory symptoms February 09: Sitting up in a chair. Abdominal pain better. at the bedside. CT scan abdomen revealing gallstones. Discussed with Dr. Dorado last night and the surgeon today. Patient has dilated CBD. Suspect stone in there. Have we have no GI services in the hospital for ERCP. Spoke to Dr. Sanz at [facility] internal medicine team. Patient has been accepted. For higher level of care. Patient CT scan also showed PE. Patient already on subcu Lovenox. Also discussed with the nurse Active Medications Acetaminophen (Acetaminophen Tab 325 Mg Tab) 650 mg PO Q6HR PRN PRN Reason: Mild Pain or Fever > 100.5 Last Admin: 02/09/24 15:41 Dose: 650 mg Hydrocodone Bitart/Acetaminophen (Hydrocodone/Apap 5-325mg 1 Each Tab) 1 each PO Q6HR PRN PRN Reason: Pain Last Admin: 02/09/24 18:56 Dose: 1 each Aspirin (Aspirin 81 Mg) 81 mg PO DAILY [facility] Last Admin: 02/10/24 09:46 Dose: 81 mg Calcium Carbonate/Glycine (Calcium Carbonate 500 Mg Chewable) 500 mg PO TID PRN PRN Reason: Heartburn Last Admin: 02/08/24 19:53 Dose: 500 mg Enoxaparin Sodium (Enoxaparin 100 Mg/Ml Syringe) 100 mg SQ BID [facility] Last Admin: 02/10/24 09:47 Dose: 100 mg Finasteride (Finasteride 5 Mg Tab) 5 mg PO DAILY [facility] Last Admin: 02/10/24 09:46 Dose: 5 mg Gabapentin (Gabapentin 300 Mg Cap) 300 mg PO DAILY [facility] Last Admin: 02/10/24 09:47 Dose: 300 mg Gabapentin (Gabapentin 300 Mg Cap) 600 mg PO HS [facility] Last Admin: 02/09/24 19:44 Dose: 600 mg Hydromorphone HCl (Hydromorphone 0.5 Mg/0.5 Ml Syringe) 0.5 mg IVP Q3HR PRN PRN Reason: Moderate Pain (Scale 4 to 6) Last Admin: 02/09/24 19:43 Dose: 0.5 mg Hydromorphone HCl (Hydromorphone 1 Mg/Ml 1 Ml Syringe) 1 mg IVP Q3H PRN PRN Reason: Severe Pain (Scale 7 to 10) Ceftriaxone Sodium 1 gm/ (Sodium Chloride) 50 mls @ 100 mls/hr IVPB Q24HR [facility] Last Admin: 02/10/24 09:45 Dose: 100 mls/hr Ibuprofen (Ibuprofen 600 Mg Tab) 600 mg PO Q6H PRN PRN Reason: Pain Metoprolol Tartrate (Metoprolol Tartrate 25 Mg Tab) 25 mg PO BID [facility] Last Admin: 02/10/24 09:46 Dose: 25 mg Naloxone HCl (Naloxone 0.4 Mg/Ml 1 Ml Vial) 0.2 mg IV Q2M PRN PRN Reason: Opioid Reversal Nortriptyline HCl (Nortriptyline 25 Mg Cap) 25 mg PO [facility] Last Admin: 02/09/24 19:44 Dose: 25 mg Pantoprazole Sodium (Pantoprazole 40 Mg Tablet) 40 mg PO AC-BID [facility] Last Admin: 02/10/24 06:00 Dose: 40 mg Tamsulosin HCl (Tamsulosin 0.4 Mg Cap.Er.24h) 0.4 mg PO PC-SUPPER [facility] Last Admin: 02/09/24 17:36 Dose: 0.4 mg Social history: Smoked in the past. 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 Lives at [facility]. Does use a walker. Physical examination: VITAL SIGNS: 98.3, 99, 20, 146/75, 97% room air GENERAL: Up in a chair EYES: Pupils equal. Conjunctiva sreekanth l. HEENT: External appearance of nose and ears normal, oral cavity grossly normal. Very hard of hearing NECK: JVD not raised; masses not palpable. HEART: First and second heart sounds are normal; some edema. LUNGS: Respiratory rate increased; decreased breath sound. ABDOMEN: Soft, mild right upper quadrant tenderness tenderness, liver spleen not palpable, no masses palpable. PSYCH: Able to answer simple questions l. MUSCULOSKELETAL:No Clubbing/cyanosis;muscles-grossly intact. OA INVESTIGATIONS, reviewed in the clinical context: February 09: White count 9.3 hemoglobin 13.4 platelets 105 potassium 4[address] scan abdomen pelvis: Gallbladder distended. Gallstones. Diffuse fatty infiltration of the liver. Partially occlusive acute PE in the right lower lobe Liver ultrasound: Hepatic steatosis. February 07: Sodium 139 potassium 5.9. 25 creatinine 1.24 AST 333 ALT 224 February 06: White count 9.9 hemoglobin 13 platelets 132 sodium 140 potassium 5 BUN 17 creatinine 1.09 AST 392 ALT 136 Troponin I less than 0.024 Influenza type A, type B, RSV, COVID-19: Not detected EKG tracing personally reviewed by me-atrial fibrillation rate 140 Chest x-ray film personally reviewed by [id number] pleural effusion/atelectasis infiltrates Assessment plan: -Pneumonia suspect gram-negative organism causing sepsis: Better IV ceftriaxone. Zithromax. Blood cultures -Acute cholecystitis with choledocholithiasis. Causing sepsis Dilated common bile duct as per Dr. Dorado and Dr. Kimble. We do not have GI services for ERCP here. Patient been accepted to [facility] for higher level of care -Severe sepsis from pneumonia/gallstone cholecystitis: IV fluids antibiotics -Hepatic steatosis. -Acute pulm embolism On subcu Lovenox -Hyperkalemia: Corrected Kayexalate 30 g 1 dose. 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 Pending the same. Total time spent today about an hour with over 40 minutes of discussion Past Medical History Past Medical History: Diabetes Mellitus, Hyperlipidemia, Hypertension Additional Past Medical History / Comment(s): Quadruple bypass History of Any Multi-Drug Resistant Organisms: None Reported Past Surgical History: Coronary Bypass/CABG Additional Past Surgical History / Comment(s): valve replacement Past Psychological History: No Psychological Hx Reported Smoking Status: Former smoker Past Alcohol Use History: None Reported Past Drug Use History: None Reported
[2024-02-10 20:24] LABS: Glucose,Whole Blood 143 mg/dL (70-110)
--- NOTE | 2024-02-10 21:20 | P.PN ---
Subjective Patient seen and evaluated at bedside. Mild abdominal pain, denies nausea, fevers, chills, shortness of breath or chest pain. gen: nad cv: rrr pul: non labored breathing abd: soft, non distended, + tender to palpation, no guarding or rebound tend erness Objective - Vital Signs Vital signs: Vital Signs Temp 98.3 F 02/10/24 08:00 Pulse 69 02/10/24 16:00 Resp 20 02/10/24 14:00 BP 153/77 02/10/24 16:00 Pulse Ox 98 02/10/24 16:00 FiO2 Intake & Output 02/10/24 02/10/24 02/11/24 06:59 18:59 06:59 Intake Total 50 Output Total 200 250 Balance -200 -200 Weight 112.2 kg Intake: Intake, IV Titration 50 Amount cefTRIAXone 1 gm In 50 Sodium Chloride 0.9% 50 ml @ 100 mls/hr IVPB Q24HR [facility] Rx#:[id number] Output: Urine 200 250 Other: Voiding Method External Catheter External Catheter # Voids 1 2 # Bowel Movements 1 - Labs CBC & Chem 7: 02/10/24 05:15 02/10/24 05:15 Labs: Abnormal Lab Results - Last 24 Hours (Table) 02/10/24 02/10/24 02/10/24 Range/Units 05:15 05:15 16:20 WBC 11.3 H (3.8-10.6) k/uL MCHC 30.1 L (31.0-37.0) g/dL RDW 15.7 H (11.5-15.5) % Plt Count 105 L (150-450) k/uL Neutrophils # 9.6 H (1.3-7.7) k/uL Lymphocytes # 0.9 L (1.0-4.8) k/uL Chloride 109 H (98-107) mmol/L BUN 21 H (9-20) mg/dL POC Glucose (mg/dL) 135 H (70-110) mg/dL Total Bilirubin 5.6 H (0.2-1.3) mg/dL AST 72 H (17-59) U/L ALT 116 H (4-49) U/L Alkaline Phosphatase 249 H (38-126) U/L Total Protein 5.7 L (6.3-8.2) g/dL Albumin 2.8 L (3.5-5.0) g/dL 02/10/24 Range/Units 20:23 WBC (3.8-10.6) k/uL MCHC (31.0-37.0) g/dL RDW (11.5-15.5) % Plt Count (150-450) k/uL Neutrophils # (1.3-7.7) k/uL Lymphocytes # (1.0-4.8) k/uL Chloride (98-107) mmol/L BUN (9-20) mg/dL POC Glucose (mg/dL) 143 H (70-110) mg/dL Total Bilirubin (0.2-1.3) mg/dL AST (17-59) U/L ALT (4-49) U/L Alkaline Phosphatase (38-126) U/L Total Protein (6.3-8.2) g/dL Albumin (3.5-5.0) g/dL Microbiology - Last 24 Hours (Table) 02/09/24 11:25 Blood Culture - Preliminary Blood 02/07/24 12:57 Blood Culture - Preliminary Blood 02/07/24 12:57 Blood Culture Gram Stain - Final Blood Blood Culture - Final Escherichia coli Molecular ID Assessment and Plan Assessment: 88 yo male w/ suspected ascending cholangitis -ct abd/pelv demonstrates dilaton of duct -elevated bili's -elevated wbc -no gi capabilities, recommend transfer for possible ERCP Time with Patient: Greater than 30
[2024-02-11 06:09] LABS: Glucose,Whole Blood 90 mg/dL (70-110)
[2024-02-11 11:17] LABS: Glucose,Whole Blood 112 mg/dL (70-110)
--- NOTE | 2024-02-11 14:00 | P.PN ---
Subjective Progress Note Date: 02/11/24 Principal diagnosis: Ascending cholangitis 88-year-old male admitted with ascending cholangitis. CAT scan shows dilated biliary tree and gallstones. Patient is liver enzymes remain elevated. Plans are for transfer. Unfortunately CAT scan also shows possible acute PE. He is on therapeutic Lovenox. He is comfortable. No pain currently. Objective - Vital Signs Vital signs: Vital Signs Temp 98.1 F 02/11/24 08:00 Pulse 71 02/11/24 08:00 Resp 16 02/11/24 08:00 BP 121/64 02/11/24 08:00 Pulse Ox 95 02/11/24 08:00 FiO2 Intake & Output 02/10/24 02/11/24 02/11/24 18:59 06:59 18:59 Intake Total 50 200 Output Total 250 230 Balance -200 -30 Weight 112.5 kg Intake: Intake, IV Titration 50 Amount cefTRIAXone 1 gm In 50 Sodium Chloride 0.9% 50 ml @ 100 mls/hr IVPB Q24HR [facility] Rx#:[id number] Oral 200 Output: Urine 250 230 Other: Voiding Method External Catheter External Catheter External Catheter # Voids 2 0 # Bowel Movements 1 - Exam Abdomen: Soft, mild distention, mild epigastric tenderness - Labs CBC & Chem 7: 02/10/24 05:15 02/10/24 05:15 Labs: Abnormal Lab Results - Last 24 Hours (Table) 02/10/24 02/10/24 02/11/24 Range/Units 16:20 20:23 11:16 POC Glucose (mg/dL) 135 H 143 H 112 H (70-110) mg/dL Microbiology - Last 24 Hours (Table) 02/09/24 11:25 Blood Culture - Preliminary Blood 02/07/24 12:57 Blood Culture - Preliminary Blood 02/07/24 12:57 Blood Culture Gram Stain - Final Blood Blood Culture - Final Escherichia coli Molecular ID Assessment and Plan (1) Epigastric pain Narrative/Plan: 88-year-old male with ascending cholangitis. Continue antibiotics. Agree with plans for transfer. Current Visit: Yes Status: Acute Code(s): R10.13 - EPIGASTRIC PAIN SNOMED Code(s): 43447222
--- NOTE | 2024-02-11 14:41 | P.PN ---
Subjective Progress Note Date: 02/11/24 HISTORY OF PRESENTING ILLNESS This is a pleasant 88-year-old with past medical history significant for hyp ertension, hyperlipidemia, coronary artery disease status post CABG as well as valve replacement 2007, obesity, persistent atrial fibrillation with patient being brought off of anticoagulation a few years ago, possible TIA. He does not see a sr solutions consultant however [place] sr solutions consultant. He was having issues with rare falls and some bruising as well as nosebleed and had tried novel oral anticoagulation however too expensive and switched to Coumadin and eventually this was discontinued. He states approximately 3 weeks ago he had concern of possible TIA however stayed at home. Since then he has been feeling okay however over the last one day he started to develop chest pain radiating across his lower chest and upper abdomen and could not sit down and get comfortable. He has had some diarrhea. He was found to have fever of 103, increased liver enzymes as well as bilirubin. Abdominal ultrasound did not show any significant gallstones however tech nically difficult. He states he feels better today. Usually does not get much chest pain. Troponin 1 was normal. EKG he'll initially showing A. fib with controlled rate however increased up to 140 with A. fib with right bundle branch block and nonspecific ST depressions. 02/08 Patient seen and examined. He states overall he is feeling somewhat better. Denies any chest pain or pressure. Surgery team saw the patient and ordered CT abdomen and pelvis with CT performed however not interpreted yet. Bilirubin 4.2, AST 134, ALT 161, alk phos 192, creatinine 1.0. HR's in the 90-100 range. Echocardiogram performed which shows EF 35-40% with RVSP 38 and moderate mitral regurgitation and moderate tricuspid regurgitation 02/09 Patient reports that he has been feeling okay. He denies any chest pain or pressure. He has been off oxygen and is doing well. His abdomen is feeling slightly better. 02/10 Pt out of bed in chair, no new complaints. No chest pain or pressure. No abdominal pains. Awaiting bed avail for transfer for GI. PHYSICAL EXAMINATION Vital signs reviewed. CONSTITUTIONAL: No apparent distress. HEENT: Head is normocephalic. Pupils are equal, round. Sclerae anicteric. Mucous membranes of the mouth are moist. No JVD. No carotid bruit. CHEST EXAMINATION: Lungs are clear to auscultation. No chest wall tenderness is noted on palpation or with deep breathing. HEART EXAMINATION: Regular rate and rhythm. S1, S2 heard. No murmurs, gallops or rub. ABDOMEN: Soft, nontender. Positive bowel sounds. EXTREMITIES: 2+ peripheral pulses, no lower extremity edema and no calf t enderness. NEUROLOGIC EXAMINATION: Patient is awake, alert and oriented x3. ASSESSMENT Persistent A. fib with RVR on presentation, currently better controlled Chest pain/abdominal pain, more likely GI source with elevated liver enzymes, elevated bilirubin and fevers. Acute Sohail syndrome ruled out CAD with prior bypass History of valvular replacement Hypertension Off of anticoagulation, related to nosebleeds and bruising in the past, currently tolerating therapeutic Lovenox Hyperlipidemia Possible recent TIA ischemic cardiomyopathy EF 35-40% E coli bacteremia PLAN He is doing well from a cardiac standpoint. Continue with current regimen. Recommend continuing with anticoagulation. If any questions or concerns. Follow up in office 1-2 weeks after discharge. Patient seen and examined in rounds with Dr. Dacosta, plan of care agreed upon. Objective - Vital Signs Vital signs: Vital Signs Temp 98.1 F 02/11/24 08:00 Pulse 57 L 02/11/24 12:00 Resp 16 02/11/24 08:00 BP 140/73 02/11/24 12:00 Pulse Ox 98 02/11/24 12:00 FiO2 Intake & Output 02/10/24 02/11/24 02/11/24 18:59 06:59 18:59 Intake Total 50 200 852 Output Total 250 230 Balance -200 -30 852 Weight 112.5 kg Intake: Intake, IV Titration 50 Amount cefTRIAXone 1 gm In 50 Sodium Chloride 0.9% 50 ml @ 100 mls/hr IVPB Q24HR [facility] Rx#:[id number] Oral 200 852 Output: Urine 250 230 Other: Voiding Method External Catheter External Catheter External Catheter # Voids 2 0 # Bowel Movements 1 1 - Labs CBC & Chem 7: 02/10/24 05:15 02/10/24 05:15 Labs: Abnormal Lab Results - Last 24 Hours (Table) 02/10/24 02/10/24 02/11/24 Range/Units 16:20 20:23 11:16 POC Glucose (mg/dL) 135 H 143 H 112 H (70-110) mg/dL Microbiology - Last 24 Hours (Table) 02/09/24 11:25 Blood Culture - Preliminary Blood 02/07/24 12:57 Blood Culture - Preliminary Blood 02/07/24 12:57 Blood Culture Gram Stain - Final Blood Blood Culture - Final Escherichia coli Molecular ID
[2024-02-11 16:14] LABS: Glucose,Whole Blood 135 mg/dL (70-110)
--- NOTE | 2024-02-11 17:34 | P.PN ---
Progress Note - Text Progress Note Date: 02/11/24 Chief Complaint: Epigastric/chest pain This is a 88-year-old patient who follows with Dr. Klein. Chronic stable medical conditions include diabetes, hypertension, hyperlipidemia, coronary bypass, very hard of hearing. Patient does live by himself. Does use a walker. Lives at [facility]. Patient is accompanied by his son and grandson in the ER. Apparently patient had called his daughter this morning and had complained of chest pain. Later complaining of pain in the upper abdomen/epigastric area. Patient also had a cough. Also apparently had a fever. Because of patient's very hard of hearing patient not a very good historian. February 07: Patient admitted with pneumonia sepsis. Uncontrolled A-fib. On IV ceftriaxone and Zithromax. No fever overnight. Family at the bedside. Eating some. A bit tired. But looking better. Potassium is bit elevated with hemolysis.-Hold Cozaar. Note increased LFTs. Liver ultrasound showing fatty infiltration. February 08: Patient continues to complain of intermittent abdominal pain. Sometimes after eating. Had some pain last night and also this morning. Ultrasound was unremarkable. CT abdomen ordered. Discussed with the patient. General surgery consulted. No further respiratory symptoms February 09: Sitting up in a chair. Abdominal pain better. at the bedside. CT scan abdomen revealing gallstones. Discussed with Dr. Dorado last night and the surgeon today. Patient has dilated CBD. Suspect stone in there. Have we have no GI services in the hospital for ERCP. Spoke to Dr. Sanz at [facility] internal medicine team. Patient has been accepted. For higher level of care. Patient CT scan also showed PE. Patient already on subcu Lovenox. Also discussed with the nurse February 10: Patient pending transfer [facility]. Remains on IV ceftriaxone. No further abdominal pain. No fever. Discussed with patient. On clear liquid diet. Active Medications Acetaminophen (Acetaminophen Tab 325 Mg Tab) 650 mg PO Q6HR PRN PRN Reason: Mild Pain or Fever > 100.5 Last Admin: 02/09/24 15:41 Dose: 650 mg Hydrocodone Bitart/Acetaminophen (Hydrocodone/Apap 5-325mg 1 Each Tab) 1 each PO Q6HR PRN PRN Reason: Pain Last Admin: 02/11/24 04:14 Dose: 1 each Aspirin (Aspirin 81 Mg) 81 mg PO DAILY [facility] Last Admin: 02/11/24 08:45 Dose: 81 mg Calcium Carbonate/Glycine (Calcium Carbonate 500 Mg Chewable) 500 mg PO TID PRN PRN Reason: Heartburn Last Admin: 02/08/24 19:53 Dose: 500 mg Enoxaparin Sodium (Enoxaparin 100 Mg/Ml Syringe) 100 mg SQ BID [facility] Last Admin: 02/11/24 08:45 Dose: 100 mg Finasteride (Finasteride 5 Mg Tab) 5 mg PO DAILY [facility] Last Admin: 02/11/24 08:45 Dose: 5 mg Gabapentin (Gabapentin 300 Mg Cap) 300 mg PO DAILY [facility] Last Admin: 02/11/24 08:45 Dose: 300 mg Gabapentin (Gabapentin 300 Mg Cap) 600 mg PO [facility] Last Admin: 02/10/24 21:01 Dose: 600 mg Hydromorphone HCl (Hydromorphone 0.5 Mg/0.5 Ml Syringe) 0.5 mg IVP Q3HR PRN PRN Reason: Moderate Pain (Scale 4 to 6) Last Admin: 02/09/24 19:43 Dose: 0.5 mg Hydromorphone HCl (Hydromorphone 1 Mg/Ml 1 Ml Syringe) 1 mg IVP Q3H PRN PRN Reason: Severe Pain (Scale 7 to 10) Ceftriaxone Sodium 1 gm/ (Sodium Chloride) 50 mls @ 100 mls/hr IVPB Q24HR [facility] Last Admin: 02/11/24 08:45 Dose: 100 mls/hr Metoprolol Tartrate (Metoprolol Tartrate 25 Mg Tab) 25 mg PO BID [facility] Last Admin: 02/11/24 08:45 Dose: 25 mg Naloxone HCl (Naloxone 0.4 Mg/Ml 1 Ml Vial) 0.2 mg IV Q2M PRN PRN Reason: Opioid Reversal Nortriptyline HCl (Nortriptyline 25 Mg Cap) 25 mg PO HS [facility] Last Admin: 02/10/24 21:00 Dose: 25 mg Pantoprazole Sodium (Pantoprazole 40 Mg Tablet) 40 mg PO AC-BID [facility] Last Admin: 02/11/24 17:15 Dose: 40 mg Tamsulosin HCl (Tamsulosin 0.4 Mg Cap.Er.24h) 0.4 mg PO PC-SUPPER [facility] Last Admin: 02/11/24 17:15 Dose: 0.4 mg Social history: Smoked in the past. 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 Lives at [facility]. Does use a walker. Physical examination: VITAL SIGNS: 98.1, 71, 16, 140//73, 98% room air GENERAL: Up in recliner EYES: Pupils equal. Conjunctiva sreekanth l. HEENT: External appearance of nose and ears normal, oral cavity grossly normal. Very hard of hearing NECK: JVD not raised; masses not palpable. HEART: First and second heart sounds are normal; some edema. LUNGS: Respiratory rate increased; decreased breath sound. ABDOMEN: Soft, no tenderness, liver spleen not palpable, no masses palpable. PSYCH: Able to answer simple questions l. MUSCULOSKELETAL:No Clubbing/cyanosis;muscles-grossly intact. OA INVESTIGATIONS, reviewed in the clinical context: February 09: White count 9.3 hemoglobin 13.4 platelets 105 potassium 4.2 creatinine 0.8 Blood culture [February 06]: E. coli CT scan abdomen pelvis: Gallbladder distended. Gallstones. Diffuse fatty infiltration of the liver. Partially occlusive acute PE in the right lower lobe Liver ultrasound: Hepatic steatosis. February 07: Sodium 139 potassium 5.9. 25 creatinine 1.24 AST 333 ALT 224 February 06: White count 9.9 hemoglobin 13 platelets 132 sodium 140 potassium 5 BUN 17 creatinine 1.09 AST 392 ALT 136 Troponin I less than 0.024 Influenza type A, type B, RSV, COVID-19: Not detected EKG tracing personally reviewed by me-atrial fibrillation rate 140 Chest x-ray film personally reviewed by [id number] pleural effusion/atelectasis infiltrates Assessment plan: -Pneumonia suspect gram-negative organism causing sepsis: Better IV ceftriaxone. Zithromax. Blood cultures -Acute cholecystitis with choledocholithiasis. Causing sepsis, with blood culture positive with E. coli from February 06 Repeat blood culture from February 08 negative Dilated common bile duct as per Dr. Dorado and Dr. Kimble. We do not have GI services for ERCP here. Patient been accepted to [facility] for higher level of care -Obstructive hepatitis from gallstones with elevation of bilirubin -Severe sepsis from pneumonia/gallstone cholecystitis:: Better IV fluids antibiotics -Hepatic steatosis. -Acute pulm embolism On subcu Lovenox -Hyperkalemia: Corrected Kayexalate 30 g 1 dose. 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 Repeat labs. Continue antibiotics. Clear liquid diet. Past Medical History Past Medical History: Diabetes Mellitus, Hyperlipidemia, Hypertension Additional Past Medical History / Comment(s): Quadruple bypass History of Any Multi-Drug Resistant Organisms: None Reported Past Surgical History: Coronary Bypass/CABG Additional Past Surgical History / Comment(s): valve replacement Past Psychological History: No Psychological Hx Reported Smoking Status: Former smoker Past Alcohol Use History: None Reported Past Drug Use History: None Reported
[2024-02-11 20:08] LABS: Glucose,Whole Blood 124 mg/dL (70-110)
[2024-02-11] MEDS: diphenhydrAMINE 2% CREAM 28.4 GM TUBE TOPICAL PRN (21:23)
[2024-02-12 06:22] LABS: Glucose,Whole Blood 83 mg/dL (70-110)
[2024-02-12 07:56] LABS: ALT 57 U/L (4-49); African American GFR (CKD) >90 (>60 ml/min/1.73 sqM); Albumin 2.7 g/dL (3.5-5.0); Anion Gap 4 mmol/L; Blood Urea Nitrogen 15 mg/dL (9-20); Calcium 8.6 mg/dL (8.4-10.2); Carbon Dioxide 25 mmol/L (22-30); Chloride 108 mmol/L (98-107); Glucose 89 mg/dL (74-99); Non-African American GFR(CKD) 82 (>60 ml/min/1.73 sqM); Sodium 137 mmol/L (137-145); Total Bilirubin 3.1 mg/dL (0.2-1.3); Total Protein 5.6 g/dL (6.3-8.2)
[2024-02-12 07:59] LABS: AST 34 U/L (17-59); Alkaline Phosphatase 213 U/L (38-126); Potassium 3.9 mmol/L (3.5-5.1)
[2024-02-12 08:36] LABS: Basophils % (A) 0 %; Eosinophils # (A) 0.3 k/uL (0-0.7); Eosinophils % (A) 4 %; HCT 43.7 % (39.0-53.0); HGB 13.5 gm/dL (13.0-17.5); Hypochromasia Slight; Lymphocytes % (A) 14 %; MCH 30.3 pg (25.0-35.0); Mean Platelet Volume 10.6; Monocytes # (A) 0.5 k/uL (0-1.0); Monocytes % (A) 6 %; Neutrophils # (A) 5.5 k/uL (1.3-7.7); Neutrophils % (A) 74 %; Platelet Count 105 k/uL (150-450); RBC 4.46 m/uL (4.30-5.90); RDW 15.2 % (11.5-15.5); WBC 7.4 k/uL (3.8-10.6)
[2024-02-12 11:19] LABS: Glucose,Whole Blood 96 mg/dL (70-110)
[2024-02-12] MEDS: LOSARTAN 50 MG TAB PO SCH (12:29)
--- NOTE | 2024-02-12 12:41 | P.PN ---
Subjective Progress Note Date: 02/12/24 HISTORY OF PRESENTING ILLNESS This is a pleasant 88-year-old with past medical history significant for hyp ertension, hyperlipidemia, coronary artery disease status post CABG as well as valve replacement 2007, obesity, persistent atrial fibrillation with patient being brought off of anticoagulation a few years ago, possible TIA. He does not see a ditch tender [place]. He was having issues with rare falls and some bruising as well as nosebleed and had tried novel oral anticoagulation however too expensive and switched to Coumadin and eventually this was discontinued. He states approximately 3 weeks ago he had concern of possible TIA however stayed at home. Since then he has been feeling okay however over the last one day he started to develop chest pain radiating across his lower chest and upper abdomen and could not sit down and get comfortable. He has had some diarrhea. He was found to have fever of 103, increased liver enzymes as well as bilirubin. Abdominal ultrasound did not show any significant gallstones however tech nically difficult. He states he feels better today. Usually does not get much chest pain. Troponin 1 was normal. EKG he'll initially showing A. fib with controlled rate however increased up to 140 with A. fib with right bundle branch block and nonspecific ST depressions. 02/08 Patient seen and examined. He states overall he is feeling somewhat better. Denies any chest pain or pressure. Surgery team saw the patient and ordered CT abdomen and pelvis with CT performed however not interpreted yet. Bilirubin 4.2, AST 134, ALT 161, alk phos 192, creatinine 1.0. HR's in the 90-100 range. Echocardiogram performed which shows EF 35-40% with RVSP 38 and moderate mitral regurgitation and moderate tricuspid regurgitation 02/09 Patient reports that he has been feeling okay. He denies any chest pain or pressure. He has been off oxygen and is doing well. His abdomen is feeling slightly better. 02/10 Pt out of bed in chair, no new complaints. No chest pain or pressure. No abdominal pains. Awaiting bed avail for transfer for GI. 02/11 Patient states he feels good today. He denies abd pain today. He is waiting to transfer to [facility] for surgical procedure. He is off anticoagulation waiting for surgery. Patient is quite upset as he has been waiting for 4 days to be transferred. Blood pressure 179/84, heart rate 92, pulse ox 95% on room air. PHYSICAL EXAMINATION Vital signs reviewed. CONSTITUTIONAL: No apparent distress. HEENT: Head is normocephalic. Pupils are equal, round. Sclerae anicteric. Mucous membranes of the mouth are moist. No JVD. No carotid bruit. CHEST EXAMINATION: Lungs are clear to auscultation. No chest wall tenderness is noted on palpation or with deep breathing. HEART EXAMINATION: Regular rate and rhythm. S1, S2 heard. No murmurs, gallops or rub. ABDOMEN: Soft, nontender. Positive bowel sounds. EXTREMITIES: 2+ peripheral pulses, no lower extremity edema and no calf tenderness. NEUROLOGIC EXAMINATION: Patient is awake, alert and oriented x3. ASSESSMENT Persistent A. fib with RVR on presentation, currently better controlled Chest pain/abdominal pain, more likely GI source with elevated liver enzymes, elevated bilirubin and fevers. Acute coronary syndrome ruled out CAD with prior bypass History of valvular replacement Hypertension Off of anticoagulation, related to nosebleeds and bruising in the past, currently tolerating therapeutic Lovenox Hyperlipidemia Possible recent TIA ischemic cardiomyopathy EF 35-40% E coli bacteremia PLAN He is doing well from a cardiac standpoint. Continue with current regimen. Anticoagulation on hold due to upcoming surgery No further recommendations from cardiology. Patient is waiting for transfer to [facility] for surgical intervention. Follow up in office 1-2 weeks after discharge. Nurse practitioner note has been reviewed, I agree with documented findings and plan of care. Patient was seen and examined. Objective - Vital Signs Vital signs: Vital Signs Temp 97.9 F 02/12/24 09:15 Pulse 92 02/12/24 09:15 Resp 18 02/12/24 09:15 BP 179/84 02/12/24 09:15 Pulse Ox 95 02/12/24 09:15 FiO2 21 02/12/24 08:57 Intake & Output 02/11/24 02/12/24 02/12/24 18:59 06:59 18:59 Intake Total 1132 Output Total 900 Balance 1132 -900 Weight 112.3 kg Intake: Oral 1132 Output: Urine 900 Other: Voiding Method External Catheter External Catheter External Catheter # Bowel Movements 1 - Labs CBC & Chem 7: 02/12/24 07:17 02/12/24 07:17 Labs: Abnormal Lab Results - Last 24 Hours (Table) 02/11/24 02/11/24 02/11/24 Range/Units 11:16 16:12 20:06 Plt Count (150-450) k/uL Chloride (98-107) mmol/L POC Glucose (mg/dL) 112 H 135 H 124 H (70-110) mg/dL Total Bilirubin (0.2-1.3) mg/dL ALT (4-49) U/L Alkaline Phosphatase (38-126) U/L Total Protein (6.3-8.2) g/dL Albumin (3.5-5.0) g/dL 02/12/24 02/12/24 Range/Units 07:17 07:17 Plt Count 105 L (150-450) k/uL Chloride 108 H (98-107) mmol/L POC Glucose (mg/dL) (70-110) mg/dL Total Bilirubin 3.1 H (0.2-1.3) mg/dL ALT 57 H (4-49) U/L Alkaline Phosphatase 213 H (38-126) U/L Total Protein 5.6 L (6.3-8.2) g/dL Albumin 2.7 L (3.5-5.0) g/dL Microbiology - Last 24 Hours (Table) 02/09/24 11:25 Blood Culture - Preliminary Blood
--- NOTE | 2024-02-12 13:04 | P.PN ---
Subjective Progress Note Date: 02/12/24 CHIEF COMPLAINT: Ascending cholangitis HISTORY OF PRESENT ILLNESS: 88-year-old male admitted with ascending cholangitis. CAT scan shows dilated biliary tree and gallstones. Patient currently denies any abdominal pain. Denies any nausea or vomiting. He reports feeling better. Afebrile. WBC 11.3 to 7.4 total bili 5.6 to 3.1 AST 72-34 ALT 116-57 alk phos 249-213 blood culture positive with Ecoli PHYSICAL EXAM: VITAL SIGNS: Reviewed. GENERAL: Well-developed in no acute distress. ABDOMEN: Soft. Nondistended. Nontender. ASSESSMENT: 1. Ascending cholangitis 2. PE PLAN: -Continue to monitor LFTs and total bilirubin -Continue antibiotic -Awaiting transfer to [facility] -Anticoagulated with Lovenox Physician Deck Officer note has been reviewed by physician. Signing provider agrees with the documented findings, assessment, and plan of care. Objective - Vital Signs Vital signs: Vital Signs Temp 97.9 F 02/12/24 09:15 Pulse 92 02/12/24 09:15 Resp 18 02/12/24 09:15 BP 179/84 02/12/24 09:15 Pulse Ox 95 02/12/24 09:15 FiO2 21 02/12/24 08:57 Intake & Output 02/11/24 02/12/24 02/12/24 18:59 06:59 18:59 Intake Total 1132 Output Total 900 Balance 1132 -900 Weight 112.3 kg Intake: Oral 1132 Output: Urine 900 Other: Voiding Method External Catheter External Catheter External Catheter # Bowel Movements 1 - Labs CBC & Chem 7: 02/12/24 07:17 02/12/24 07:17 Labs: Abnormal Lab Results - Last 24 Hours (Table) 02/11/24 02/11/24 02/12/24 Range/Units 16:12 20:06 07:17 Plt Count 105 L (150-450) k/uL Chloride (98-107) mmol/L POC Glucose (mg/dL) 135 H 124 H (70-110) mg/dL Total Bilirubin (0.2-1.3) mg/dL ALT (4-49) U/L Alkaline Phosphatase (38-126) U/L Total Protein (6.3-8.2) g/dL Albumin (3.5-5.0) g/dL 02/12/24 Range/Units 07:17 Plt Count (150-450) k/uL Chloride 108 H (98-107) mmol/L POC Glucose (mg/dL) (70-110) mg/dL Total Bilirubin 3.1 H (0.2-1.3) mg/dL ALT 57 H (4-49) U/L Alkaline Phosphatase 213 H (38-126) U/L Total Protein 5.6 L (6.3-8.2) g/dL Albumin 2.7 L (3.5-5.0) g/dL Microbiology - Last 24 Hours (Table) 02/09/24 11:25 Blood Culture - Preliminary Blood
[2024-02-12 16:24] LABS: Glucose,Whole Blood 104 mg/dL (70-110)
[2024-02-12] MEDS: LOSARTAN 50 MG TAB PO STA (17:36)
--- NOTE | 2024-02-12 18:14 | P.DS ---
Providers Date of admission: 02/07/24 13:04 Expected date of discharge: 02/12/24 Attending physician: Lenin Rosado Consults: 02/07/24 13:04 Consult Physician Routine Consulting Provider: Neil Gallego Consult Reason/Comments: afib rvr Do you want consulting provider notified?: Yes 02/09/24 11:16 Consult Physician Routine Consulting Provider: Rudy Dorado Consult Reason/Comments: abd pain Do you want consulting provider notified?: Yes Primary care physician: [facility] Course: Chief Complaint: Epigastric/chest pain This is a 88-year-old patient who follows with Dr. Klein. Chronic stable medical conditions include diabetes, hypertension, hyperlipidemia, coronary bypass, very hard of hearing. Patient does live by himself. Does use a walker. Lives at [facility]. Patient is accompanied by his son and grandson in the ER. Apparently patient had called his daughter this morning and had complained of chest pain. Later complaining of pain in the upper abdomen/epigastric area. Patient also had a cough. Also apparently had a fever. Because of patient's very hard of hearing patient not a very good historian. February 07: Patient admitted with pneumonia sepsis. Uncontrolled A-fib. On IV ceftriaxone and Zithromax. No fever overnight. Family at the bedside. Eating some. A bit tired. But looking better. Potassium is bit elevated with hemolysis.-Hold Cozaar. Note increased LFTs. Liver ultrasound showing fatty infiltration. February 08: Patient continues to complain of intermittent abdominal pain. Sometimes after eating. Had some pain last night and also this morning. Ultrasound was unremarkable. CT abdomen ordered. Discussed with the patient. General surgery consulted. No further respiratory symptoms February 09: Sitting up in a chair. Abdominal pain better. at the bedside. CT scan abdomen revealing gallstones. Discussed with Dr. Dorado last night and the surgeon today. Patient has dilated CBD. Suspect stone in there. Have we have no GI services in the hospital for ERCP. Spoke to Dr. Sanz at [facility] internal medicine team. Patient has been accepted. For higher level of care. Patient CT scan also showed PE. Patient already on subcu Lovenox. Also discussed with the nurse February 10: Patient pending transfer [facility]. Remains on IV ceftriaxone. No further abdominal pain. No fever. Discussed with patient. On clear liquid diet. February 11 t: Reclining in bed. No abdominal pain. No nausea vomiting. Liquid diet. Spoke to patient's son at length. I spoke to again to the transfer team at [facility] with Dr. Dewitt. Given update. Patient been accepted. Expecting a bed soon. Discussion and discharge planning more than 35 minutes Social history: Smoked in the past. 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 Does use a walker. Physical examination: VITAL SIGNS: 97.9, 90, 18, 160/86, 95% room air GENERAL: Reclining in bed EYES: Pupils equal. Conjunctiva sreekanth l. HEENT: External appearance of nose and ears normal, oral cavity grossly normal. Very hard of hearing NECK: JVD not raised; masses not palpable. HEART: First and second heart sounds are normal; some edema. LUNGS: Respiratory rate not Mar; decreased breath sound. ABDOMEN: Soft, no tenderness, liver spleen not palpable, no masses palpable. PSYCH: Able to answer simple questions l. MUSCULOSKELETAL:No Clubbing/cyanosis;muscles-grossly intact. OA INVESTIGATIONS, reviewed in the clinical context: February 11: White count 7.4 hemoglobin 13.5 platelets 105 potassium 3.9 BUN 15 creatinine 0.77 AST 34 ALT 57 total bilirubin 3.1 February 09: White count 9.3 hemoglobin 13.4 platelets 105 potassium 4.2 creatinine 0.8 Blood culture [February 06]: E. coli CT scan abdomen pelvis: Gallbladder distended. Gallstones. Diffuse fatty infiltration of the liver. Partially occlusive acute PE in the right lower lobe Liver ultrasound: Hepatic steatosis. February 07: Sodium 139 potassium 5.9. 25 creatinine 1.24 AST 333 ALT 224 February 06: White count 9.9 hemoglobin 13 platelets 132 sodium 140 potassium 5 BUN 17 creatinine 1.09 AST 392 ALT 136 Troponin I less than 0.024 Influenza type A, type B, RSV, COVID-19: Not detected EKG tracing personally reviewed by me-atrial fibrillation rate 140 Chest x-ray film personally reviewed by [id number] pleural effusion/a telectasis infiltrates Assessment plan: -Pneumonia suspect gram-negative organism causing sepsis: Clear clear resolved IV ceftriaxone. Zithromax. -Acute cholecystitis with choledocholithiasis. Causing sepsis, with blood culture positive with E. coli from February 06 Repeat blood culture from February 08 negative Dilated common bile duct as per Dr. Dorado and Dr. Kimble. We do not have GI services for ERCP here. Patient been accepted to [facility] for higher level of care Spoke to for an update today. -Obstructive hepatitis from gallstones with elevation of bilirubin: Improving -Severe sepsis from pneumonia/gallstone cholecystitis:: Better IV fluids antibiotics -Hepatic steatosis. -Acute pulm embolism On subcu Lovenox -Hyperkalemia: Corrected Kayexalate 30 g 1 dose. -Persistent atrial fibrillation with rapid ventricular rate: Rate better controlled Cardizem drip initially Lopressor 25 twice daily -Essential hypertension Lopressor. 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 We do not have GI services Past Medical History Past Medical History: Diabetes Mellitus, Hyperlipidemia, Hypertension Additional Past Medical History / Comment(s): Quadruple bypass History of Any Multi-Drug Resistant Organisms: None Reported Past Surgical History: Coronary Bypass/CABG Additional Past Surgical History / Comment(s): valve replacement Past Psychological History: No Psychological Hx Reported Smoking Status: Former smoker Past Alcohol Use History: None Reported Past Drug Use History: None Reported Plan - Discharge Summary Discharge Rx Participant: No New Discharge Prescriptions: No Action Losartan Potassium 100 mg PO DAILY Atorvastatin [Lipitor] 40 mg PO HS Aspirin EC [Ecotrin Low Dose] 81 mg PO DAILY Doxycycline Hyclate 50 mg PO DAILY Metoprolol Tartrate [Lopressor] 25 mg PO BID metroNIDAZOLE [metroNIDAZOLE 0.75%] 1 applic TOPICAL BID metroNIDAZOLE 0.75% CREAM [Metrocream 0.75%] 1 applic TOPICAL BID Finasteride [Proscar] 5 mg PO DAILY Tamsulosin [Flomax] 0.4 mg PO PC-SUPPER Nortriptyline [Pamelor] 25 mg PO HS Gabapentin [Neurontin] 300 mg PO DAILY Gabapentin [Neurontin] 600 mg PO HS Discharge Medication List Aspirin EC [Ecotrin Low Dose] 81 mg PO DAILY 02/07/24 [History] Atorvastatin [Lipitor] 40 mg PO HS 02/07/24 [History] Doxycycline Hyclate 50 mg PO DAILY 02/07/24 [History] Finasteride [Proscar] 5 mg PO DAILY 02/07/24 [History] Gabapentin [Neurontin] 300 mg PO DAILY 02/07/24 [History] Gabapentin [Neurontin] 600 mg PO HS 02/07/24 [History] Losartan Potassium 100 mg PO DAILY 02/07/24 [History] Metoprolol Tartrate [Lopressor] 25 mg PO BID 02/07/24 [History] Nortriptyline [Pamelor] 25 mg PO HS 02/07/24 [History] Tamsulosin [Flomax] 0.4 mg PO PC-SUPPER 02/07/24 [History] metroNIDAZOLE 0.75% CREAM [Metrocream 0.75%] 1 applic TOPICAL BID 02/07/24 [History] metroNIDAZOLE [metroNIDAZOLE 0.75%] 1 applic TOPICAL BID 02/07/24 [History] Follow up Appointment(s)/Referral(s): Sohail Klein DO [Primary Care Provider] - 1-2 days
[2024-02-12 20:03] LABS: Glucose,Whole Blood 110 mg/dL (70-110)
[2024-02-12 22:37] VITALS: BP 178/92; PULSE 104; TEMP 99.2
[2024-02-12 22:40] VITALS: RESP 20
[2024-02-13] MEDS ORDERED: LOSARTAN 50 MG TAB PO SCH (09:00)
== END 2024-02-12 22:42 | disposition short-term general hospital (02) | DRG 871 ==
LOC: EC 10:10 → 3SCARD 13:04
PROVIDERS: ADMIT Hospitalist; ATTEND Hospitalist
PROC: 3E033RZ Introduction of Antiarrhythmic into Peripheral Vein, Percutaneous Approach (ICD-10-PCS; principal; 2024-02-07)
DX: A41.51 Sepsis due to Escherichia coli [E. coli] (principal); I26.99 Other pulmonary embolism without acute cor pulmonale; J15.69 Pneumonia due to other Gram-negative bacteria; K80.62 Calculus of gallbladder and bile duct with acute cholecystitis without obstruction; K83.09 Other cholangitis; I48.19 Other persistent atrial fibrillation; F03.90 Unspecified dementia, unspecified severity, without behavioral disturbance, psychotic disturbance, mood disturbance, and anxiety; K76.0 Fatty (change of) liver, not elsewhere classified; E11.9 Type 2 diabetes mellitus without complications; I10 Essential (primary) hypertension; I08.1 Rheumatic disorders of both mitral and tricuspid valves; E66.9 Obesity, unspecified; Z68.37 Body mass index [BMI] 37.0-37.9, adult; R65.20 Severe sepsis without septic shock; Z66 Do not resuscitate; E87.5 Hyperkalemia; N40.0 Benign prostatic hyperplasia without lower urinary tract symptoms; I25.10 Atherosclerotic heart disease of native coronary artery without angina pectoris; I25.5 Ischemic cardiomyopathy; I45.10 Unspecified right bundle-branch block; E78.5 Hyperlipidemia, unspecified; H91.90 Unspecified hearing loss, unspecified ear; R26.9 Unspecified abnormalities of gait and mobility; Z95.2 Presence of prosthetic heart valve; Z79.82 Long term (current) use of aspirin; Z79.899 Other long term (current) drug therapy; Z95.1 Presence of aortocoronary bypass graft; Z87.891 Personal history of nicotine dependence; Z88.8 Allergy status to other drugs, medicaments and biological substances
CPT/HCPCS: 36415; 71046; 74177; 76705; 80053; 82550; 83605; 83735; 84484; 85025; 85610; 85730; 87040; 87077; 87186; 87636; 93005; 93306; 94760; 96361; 96365; 96372; 96375; 99291